=== PATIENT | female | born 1930 | race Caucasian/White ===

== ENCOUNTER 2018-05-10 19:15 | Inpatient (IN) | payer MEDICARE, BC ==
[~2018-05-10] VITALS: Ht 162.6 cm; Wt 66.7 kg
[2018-05-10 20:00] VITALS: BP 152/71
[2018-05-10] MEDS ORDERED: Z GUARD REMEDY PASTE 57 GM TUBE TOP PRN (20:45)
[2018-05-10] MEDS ORDERED: DULO30CA2 PO (20:56)
[2018-05-10] MEDS ORDERED: ALBU8.5H8 IH (20:56)
[2018-05-10] MEDS ORDERED: METO-356 PO (20:56)
[2018-05-10] MEDS ORDERED: APIX5TAB PO (20:56)
[2018-05-10] MEDS ORDERED: LORA1TAB PO (20:56)
[2018-05-10] MEDS ORDERED: SENN-167 PO (20:56)
[2018-05-10] MEDS ORDERED: HYDR-3326 PO (20:56)
[2018-05-10] MEDS ORDERED: ACET-2154 PO (20:56)
[2018-05-10] MEDS ORDERED: BISA-79 RC (20:56)
[2018-05-10] MEDS ORDERED: CHOL400T32 PO (20:56)
[2018-05-10] MEDS ORDERED: DOCU-141 PO (20:56)
[2018-05-10] MEDS ORDERED: ATOR80TA PO (20:56)
[2018-05-10] MEDS ORDERED: LEVO50TA8 PO (20:56)
[2018-05-10] MEDS ORDERED: POLY17PO4 PO (20:56)
[2018-05-10] MEDS ORDERED: NA P133E RC (20:56)
[2018-05-10] MEDS ORDERED: VERA120C3 PO (20:56)
[2018-05-10] MEDS ORDERED: VERAPAMIL SR 120 MG TABLET.SA PO ONE (22:57)
[2018-05-10] MEDS: LORAZEPAM 1 MG TABLET PO PRN (23:18)
[2018-05-10] MEDS: VERAPAMIL SR 120 MG TABLET.SA PO SCH (23:19)
[2018-05-11 04:00] VITALS: BP 121/63
[2018-05-11 08:00] VITALS: BP 160/76
[2018-05-11] MEDS ORDERED: LORAZEPAM 1 MG TABLET PO PRN (08:45)
[2018-05-11] MEDS ORDERED: ALBUTEROL SULFATE 8 GM HFA.AER.AD IH PRN (08:45)
[2018-05-11] MEDS ORDERED: MIRALAX 17 GM POWD.PACK PO PRN (08:45)
[2018-05-11] MEDS ORDERED: FLEET ENEMA 133 ML BOTTLE RC PRN (08:45)
[2018-05-11] MEDS ORDERED: BISACODYL 5 MG TABLET.DR PO PRN (08:45)
[2018-05-11] MEDS ORDERED: VERAPAMIL HCL 120 MG PO SCH (09:00)
[2018-05-11] MEDS: SENNOSIDES 1 TABLET PO SCH ×2 (09:00→17:00)
[2018-05-11] MEDS ORDERED: DOCUSATE SODIUM 100 MG CAPSULE PO SCH (09:00)
[2018-05-11] MEDS ORDERED: CHOLECALCIFEROL 400 UNITS TABLET PO SCH (09:00)
[2018-05-11] MEDS ORDERED: APIXABAN 5 MG TABLET PO ONE (09:30)
[2018-05-11] MEDS ORDERED: ALBUTEROL SULFATE 2.5 MG/3 ML NEBU NEB PRN (09:45)
[2018-05-11] MEDS: METOPROLOL SUCCINATE XL 25 MG TAB.SR.24H PO SCH (09:59)
[2018-05-11] MEDS: VERAPAMIL SR 120 MG TABLET.SA PO SCH ×2 (10:00→17:08)
[2018-05-11] MEDS: CHOLECALCIFEROL 1,000 UNIT TABLET PO SCH (10:00)
[2018-05-11] MEDS: LORAZEPAM 1 MG TABLET PO PRN ×2 (10:00→21:02)
[2018-05-11] MEDS: DOCUSATE SODIUM 100 MG/10 ML LIQUID UDC PO SCH ×2 (10:00→17:08)
[2018-05-11] MEDS: DULOXETINE 30 MG CAPSULE.DR PO SCH (10:01)
[2018-05-11] MEDS: LEVOTHYROXINE SODIUM 50 MCG TABLET PO SCH (10:01)
[2018-05-11 16:00] VITALS: BP 146/68
[2018-05-11] MEDS: APIXABAN 5 MG TABLET PO SCH (17:54)
[2018-05-11 19:30] VITALS: BP 128/74
[2018-05-11] MEDS: ATORVASTATIN 40 MG TABLET PO SCH (21:00)
[2018-05-11] MEDS ORDERED: Medication Not On Formulary EA (Atorvastatin Calcium (Lipitor) 80 MG) PO SCH (21:00)
[2018-05-12 04:00] VITALS: BP 130/72
[2018-05-12] MEDS: LEVOTHYROXINE SODIUM 50 MCG TABLET PO SCH (06:23)
[2018-05-12 08:00] VITALS: BP 165/76
[2018-05-12] MEDS: LORAZEPAM 1 MG TABLET PO PRN (08:31)
[2018-05-12] MEDS: SENNOSIDES 1 TABLET PO SCH ×2 (09:00→17:00)
[2018-05-12] MEDS: DOCUSATE SODIUM 100 MG/10 ML LIQUID UDC PO SCH ×2 (09:00→17:00)
[2018-05-12] MEDS: DULOXETINE 30 MG CAPSULE.DR PO SCH (10:02)
[2018-05-12] MEDS: VERAPAMIL SR 120 MG TABLET.SA PO SCH ×2 (10:02→17:21)
[2018-05-12] MEDS: METOPROLOL SUCCINATE XL 25 MG TAB.SR.24H PO SCH (10:03)
[2018-05-12] MEDS: APIXABAN 5 MG TABLET PO SCH ×2 (10:39→17:20)
[2018-05-12] MEDS: CHOLECALCIFEROL 1,000 UNIT TABLET PO SCH (15:54)
[2018-05-12 16:00] VITALS: BP 162/77
[2018-05-12 20:30] VITALS: BP 150/59
[2018-05-12] MEDS: ATORVASTATIN 40 MG TABLET PO SCH (20:56)
[2018-05-13] MEDS: LEVOTHYROXINE SODIUM 50 MCG TABLET PO SCH (06:07)
[2018-05-13 06:47] VITALS: BP 154/66
[2018-05-13 08:00] VITALS: BP 164/63
[2018-05-13] MEDS: ACETAMINOPHEN 325 MG TABLET PO PRN ×2 (10:12→21:24)
[2018-05-13] MEDS: DOCUSATE SODIUM 100 MG/10 ML LIQUID UDC PO SCH ×2 (10:21→17:52)
[2018-05-13] MEDS: APIXABAN 5 MG TABLET PO SCH ×2 (10:22→17:54)
[2018-05-13] MEDS: VERAPAMIL SR 120 MG TABLET.SA PO SCH ×2 (10:23→17:52)
[2018-05-13] MEDS: MODAFINIL 100 MG TABLET PO SCH (10:27)
[2018-05-13] MEDS: METOPROLOL SUCCINATE XL 25 MG TAB.SR.24H PO SCH (10:28)
[2018-05-13] MEDS: SENNOSIDES 1 TABLET PO SCH ×2 (10:28→17:54)
[2018-05-13] MEDS: CHOLECALCIFEROL 1,000 UNIT TABLET PO SCH (10:28)
[2018-05-13] MEDS: LORAZEPAM 1 MG TABLET PO PRN (10:29)
[2018-05-13 16:44] VITALS: BP 139/50
[2018-05-13] MEDS: HYDROCODONE/APAP 5-325MG TABLET PO PRN (17:51)
[2018-05-13 19:42] VITALS: BP 129/56
[2018-05-13] MEDS: ATORVASTATIN 40 MG TABLET PO SCH (21:24)
[2018-05-14] MEDS: ACETAMINOPHEN 325 MG TABLET PO PRN ×3 (02:53→15:51)
[2018-05-14 05:00] VITALS: BP 163/59
[2018-05-14] MEDS: LEVOTHYROXINE SODIUM 50 MCG TABLET PO SCH (06:33)
[2018-05-14 07:25] LABS: BASOPHILS # (AUTO) 0.1 K/uL (0.0-8.0); BASOPHILS % (AUTO) 0.7 % (0.0-2.0); EOSINOPHILS % (AUTO) 0.5 % (0.0-7.0); HEMATOCRIT 37.3 % (31.2-41.9); HEMOGLOBIN 12.6 g/dL (10.9-14.3); LYMPHOCYTES # (AUTO) 1.7 K/uL (20.0-40.0); LYMPHOCYTES % (AUTO) 19.5 % (20.5-51.5); MEAN CORPUSCULAR HEMOGLOBIN 30.5 uug (24.7-32.8); MEAN CORPUSCULAR HGB CONC 34 g/dL (32.3-35.6); MEAN CORPUSCULAR VOLUME 90.1 fL (75.5-95.3); MONOCYTES # (AUTO) 0.7 K/uL (2.0-10.0); NEUTROPHILS # (AUTO) 6.2 K/uL (1.8-8.9); NEUTROPHILS % (AUTO) 71.3 % (38.5-71.5); PLATELET COUNT (AUTO) 440 K/uL (179-408); RED BLOOD CELL COUNT(AUTO) 4.14 MIL/uL (3.63-4.92); WHITE BLOOD COUNT (AUTO) 8.7 K/uL (3.8-11.8)
[2018-05-14 07:40] VITALS: BP 154/62
[2018-05-14 07:57] LABS: CARBON DIOXIDE 29 mmol/L (21-32); CHLORIDE 108 mmol/L (98-107); CREATININE 0.9 mg/dL (0.6-1.3); GLUCOSE 100 mg/dL (74-106); MAGNESIUM 2.2 mg/dL (1.8-2.4); POTASSIUM 3.7 mmol/L (3.5-5.1); UREA NITROGEN, BLOOD 37 mg/dL (7-18)
[2018-05-14] MEDS: SENNOSIDES 1 TABLET PO SCH ×2 (09:00→16:46)
[2018-05-14] MEDS: METOPROLOL SUCCINATE XL 25 MG TAB.SR.24H PO SCH (09:27)
[2018-05-14] MEDS: MODAFINIL 100 MG TABLET PO SCH (09:27)
[2018-05-14] MEDS: VERAPAMIL SR 120 MG TABLET.SA PO SCH (09:28)
[2018-05-14] MEDS: APIXABAN 5 MG TABLET PO SCH ×2 (09:29→16:54)
[2018-05-14] MEDS: DOCUSATE SODIUM 100 MG/10 ML LIQUID UDC PO SCH ×2 (10:17→16:45)
[2018-05-14] MEDS: CHOLECALCIFEROL 1,000 UNIT TABLET PO SCH (10:18)
[2018-05-14 16:06] VITALS: BP 168/65
[2018-05-14] MEDS ORDERED: VERAPAMIL 40 MG TABLET PO SCH (17:00)
[2018-05-14 20:38] VITALS: BP 172/72
[2018-05-14] MEDS: ATORVASTATIN 40 MG TABLET PO SCH (21:08)
[2018-05-14] MEDS: VERAPAMIL 40 MG TABLET PO SCH (21:09)
[2018-05-14] MEDS: MAG HYDROX/AL HYDROX/SIMETH 30 ML LIQUID UDC PO PRN (22:06)
[2018-05-14] MEDS: LORAZEPAM 1 MG TABLET PO PRN (22:36)
[2018-05-15] MEDS: ACETAMINOPHEN 325 MG TABLET PO PRN ×2 (03:41→15:32)
[2018-05-15 05:46] LABS: *BILIRUBIN,URIN NEGATIVE (NEGATIVE); *BLOOD, URINE 2+ (NEGATIVE); *CLARITY,URINE CLOUDY (CLEAR); *COLOR,URINE YELLOW (YELLOW); *KETONES,URINE TRACE (NEGATIVE); *PROTEIN,URINE 1+ (NEGATIVE); *UROBILINOGEN,URINE 0.2 E.U./dl (NORMAL); LEUKOCYTE ESTERASE ,URINE 3+ (NEGATIVE); NITRITE, URINE POSITIVE (NEGATIVE); UGLUCOSE NEGATIVE (NEGATIVE)
[2018-05-15 05:49] LABS: BACTERIA,URINE MANY /HPF (NONE SEEN); RBC,URINE TNTC /HPF (0-3); SQUAMOUS EPITHELIAL CELL,UR FEW /HPF (NONE SEEN); WBC,URINE TNTC /HPF (0-3)
[2018-05-15] MEDS: LEVOTHYROXINE SODIUM 50 MCG TABLET PO SCH (06:10)
[2018-05-15] MEDS: VERAPAMIL 40 MG TABLET PO SCH ×3 (06:11→21:22)
[2018-05-15 06:59] VITALS: BP 128/68
[2018-05-15] MEDS: APIXABAN 5 MG TABLET PO SCH ×2 (08:44→16:12)
[2018-05-15] MEDS: METOPROLOL SUCCINATE XL 25 MG TAB.SR.24H PO SCH (08:48)
[2018-05-15] MEDS: CHOLECALCIFEROL 1,000 UNIT TABLET PO SCH (08:49)
[2018-05-15] MEDS: MODAFINIL 100 MG TABLET PO SCH (08:49)
[2018-05-15] MEDS: DOCUSATE SODIUM 100 MG/10 ML LIQUID UDC PO SCH ×2 (08:55→16:12)
[2018-05-15] MEDS: SENNOSIDES 1 TABLET PO SCH ×2 (09:16→16:13)
[2018-05-15] MEDS: LORAZEPAM 1 MG TABLET PO PRN ×2 (09:52→21:22)
[2018-05-15 16:00] VITALS: BP 167/64
[2018-05-15] MEDS: HYDROCODONE/APAP 5-325MG TABLET PO PRN (18:51)
[2018-05-15] MEDS: ATORVASTATIN 40 MG TABLET PO SCH (20:22)
[2018-05-15] MEDS: LEVOFLOXACIN 250 MG TABLET PO SCH (20:22)
[2018-05-15] MEDS ORDERED: METHYL SALICYLATE/MENTHOL CREAM 28 GM TUBE TOP PRN (20:45)
[2018-05-15 21:18] VITALS: BP 170/71
[2018-05-15] MEDS: MEGESTROL ACETATE 400 MG/10 ML LIQUID UDC PO SCH (21:22)
[2018-05-15 21:34] VITALS: BP 154/61
[2018-05-16] MEDS: ACETAMINOPHEN 325 MG TABLET PO PRN (00:48)
[2018-05-16] MEDS: VERAPAMIL 40 MG TABLET PO SCH ×3 (06:10→21:55)
[2018-05-16] MEDS: LEVOTHYROXINE SODIUM 50 MCG TABLET PO SCH (06:10)
[2018-05-16 07:00] VITALS: BP 159/68
[2018-05-16] MEDS: DOCUSATE SODIUM 100 MG/10 ML LIQUID UDC PO SCH ×2 (09:32→17:09)
[2018-05-16] MEDS: APIXABAN 5 MG TABLET PO SCH ×2 (09:35→17:10)
[2018-05-16] MEDS: MODAFINIL 100 MG TABLET PO SCH (09:36)
[2018-05-16] MEDS: MEGESTROL ACETATE 400 MG/10 ML LIQUID UDC PO SCH ×2 (09:36→21:52)
[2018-05-16] MEDS: CHOLECALCIFEROL 1,000 UNIT TABLET PO SCH (09:37)
[2018-05-16] MEDS: METOPROLOL SUCCINATE XL 25 MG TAB.SR.24H PO SCH (09:38)
[2018-05-16] MEDS: SENNOSIDES 1 TABLET PO SCH ×2 (09:53→17:09)
[2018-05-16 16:00] VITALS: BP 151/58
[2018-05-16 19:30] VITALS: BP 143/65
[2018-05-16] MEDS: LORAZEPAM 1 MG TABLET PO PRN (21:51)
[2018-05-16] MEDS: ATORVASTATIN 40 MG TABLET PO SCH (21:52)
[2018-05-16] MEDS: LEVOFLOXACIN 250 MG TABLET PO SCH (21:52)
[2018-05-17] MEDS: ACETAMINOPHEN 325 MG TABLET PO PRN ×2 (00:26→17:16)
[2018-05-17] MEDS: HYDROCODONE/APAP 5-325MG TABLET PO PRN (02:14)
[2018-05-17 04:00] VITALS: BP 136/65
[2018-05-17] MEDS: LEVOTHYROXINE SODIUM 50 MCG TABLET PO SCH (06:28)
[2018-05-17] MEDS: VERAPAMIL 40 MG TABLET PO SCH ×3 (06:30→21:07)
[2018-05-17] MEDS: SENNOSIDES 1 TABLET PO SCH ×2 (08:35→17:15)
[2018-05-17] MEDS: DOCUSATE SODIUM 100 MG/10 ML LIQUID UDC PO SCH ×2 (08:35→17:05)
[2018-05-17] MEDS: MEGESTROL ACETATE 400 MG/10 ML LIQUID UDC PO SCH ×2 (08:35→21:07)
[2018-05-17] MEDS: CHOLECALCIFEROL 1,000 UNIT TABLET PO SCH (08:35)
[2018-05-17] MEDS: LORAZEPAM 1 MG TABLET PO PRN ×2 (08:36→21:12)
[2018-05-17] MEDS: METOPROLOL SUCCINATE XL 25 MG TAB.SR.24H PO SCH (08:39)
[2018-05-17] MEDS: APIXABAN 5 MG TABLET PO SCH ×2 (08:39→17:08)
[2018-05-17] MEDS: MODAFINIL 100 MG TABLET PO SCH (08:40)
[2018-05-17 10:02] VITALS: BP 152/64
[2018-05-17 13:38] VITALS: BP 152/64
[2018-05-17 15:43] VITALS: BP 139/56
[2018-05-17] MEDS: MAG HYDROX/AL HYDROX/SIMETH 30 ML LIQUID UDC PO PRN (18:54)
[2018-05-17 20:46] VITALS: BP 130/63
[2018-05-17] MEDS: ATORVASTATIN 40 MG TABLET PO SCH (21:07)
[2018-05-17] MEDS: LEVOFLOXACIN 250 MG TABLET PO SCH (21:07)
[2018-05-18] MEDS: HYDROCODONE/APAP 5-325MG TABLET PO PRN ×2 (02:13→23:57)
[2018-05-18 05:00] VITALS: BP 152/58
[2018-05-18] MEDS: LEVOTHYROXINE SODIUM 50 MCG TABLET PO SCH (06:38)
[2018-05-18] MEDS: VERAPAMIL 40 MG TABLET PO SCH ×3 (06:39→21:00)
[2018-05-18 07:45] VITALS: BP 149/58
[2018-05-18] MEDS: MEGESTROL ACETATE 400 MG/10 ML LIQUID UDC PO SCH ×2 (09:24→21:00)
[2018-05-18] MEDS: DOCUSATE SODIUM 100 MG/10 ML LIQUID UDC PO SCH ×2 (09:24→16:36)
[2018-05-18] MEDS: METOPROLOL SUCCINATE XL 25 MG TAB.SR.24H PO SCH (09:25)
[2018-05-18] MEDS: CHOLECALCIFEROL 1,000 UNIT TABLET PO SCH (09:25)
[2018-05-18] MEDS: MODAFINIL 100 MG TABLET PO SCH (09:25)
[2018-05-18] MEDS: SENNOSIDES 1 TABLET PO SCH ×2 (09:25→16:36)
[2018-05-18] MEDS: APIXABAN 5 MG TABLET PO SCH ×2 (09:26→16:40)
[2018-05-18] MEDS: NITROFURANTOIN/NITROFURAN MAC 100 MG CAPSULE PO SCH ×2 (11:25→20:59)
[2018-05-18] MEDS: LORAZEPAM 1 MG TABLET PO PRN ×2 (12:45→21:00)
[2018-05-18] MEDS: ACETAMINOPHEN 325 MG TABLET PO PRN (15:03)
[2018-05-18 16:33] VITALS: BP 134/56
[2018-05-18 20:34] VITALS: BP 153/60
[2018-05-18] MEDS: ATORVASTATIN 40 MG TABLET PO SCH (21:00)
[2018-05-19 05:20] VITALS: BP 132/59
[2018-05-19] MEDS: VERAPAMIL 40 MG TABLET PO SCH ×3 (06:06→22:00)
[2018-05-19] MEDS: LEVOTHYROXINE SODIUM 50 MCG TABLET PO SCH (06:06)
[2018-05-19 08:00] VITALS: BP 134/63
[2018-05-19] MEDS: LISINOPRIL 10 MG TABLET PO SCH (08:47)
[2018-05-19] MEDS: MODAFINIL 100 MG TABLET PO SCH (08:47)
[2018-05-19] MEDS: MEGESTROL ACETATE 400 MG/10 ML LIQUID UDC PO SCH ×2 (08:47→21:05)
[2018-05-19] MEDS: METOPROLOL SUCCINATE XL 25 MG TAB.SR.24H PO SCH (08:47)
[2018-05-19] MEDS: CHOLECALCIFEROL 1,000 UNIT TABLET PO SCH (08:47)
[2018-05-19] MEDS: SENNOSIDES 1 TABLET PO SCH ×2 (08:47→17:25)
[2018-05-19] MEDS: NITROFURANTOIN/NITROFURAN MAC 100 MG CAPSULE PO SCH ×2 (08:48→21:05)
[2018-05-19] MEDS: DOCUSATE SODIUM 100 MG/10 ML LIQUID UDC PO SCH ×2 (08:48→17:25)
[2018-05-19] MEDS: APIXABAN 5 MG TABLET PO SCH ×2 (08:55→17:28)
[2018-05-19] MEDS: ACETAMINOPHEN 325 MG TABLET PO PRN ×2 (08:57→21:10)
[2018-05-19 16:00] VITALS: BP 118/53
[2018-05-19] MEDS: HYDROCODONE/APAP 5-325MG TABLET PO PRN (17:29)
[2018-05-19 21:05] VITALS: BP 101/56
[2018-05-19] MEDS: LORAZEPAM 1 MG TABLET PO PRN (21:05)
[2018-05-19] MEDS: ATORVASTATIN 40 MG TABLET PO SCH (21:05)
[2018-05-20 05:27] VITALS: BP 120/63
[2018-05-20] MEDS: VERAPAMIL 40 MG TABLET PO SCH (06:22)
[2018-05-20] MEDS: LEVOTHYROXINE SODIUM 50 MCG TABLET PO SCH (06:22)
[2018-05-20] MEDS: HYDROCODONE/APAP 5-325MG TABLET PO PRN ×2 (06:28→17:46)
[2018-05-20 07:30] VITALS: BP 101/43
[2018-05-20] MEDS: CHOLECALCIFEROL 1,000 UNIT TABLET PO SCH (08:29)
[2018-05-20] MEDS: MODAFINIL 100 MG TABLET PO SCH (08:30)
[2018-05-20] MEDS: ACETAMINOPHEN 325 MG TABLET PO PRN ×2 (08:30→14:21)
[2018-05-20] MEDS: SENNOSIDES 1 TABLET PO SCH ×2 (08:30→17:45)
[2018-05-20] MEDS: LISINOPRIL 10 MG TABLET PO SCH (08:32)
[2018-05-20] MEDS: METOPROLOL SUCCINATE XL 25 MG TAB.SR.24H PO SCH (08:32)
[2018-05-20] MEDS: NITROFURANTOIN/NITROFURAN MAC 100 MG CAPSULE PO SCH (08:33)
[2018-05-20] MEDS: DOCUSATE SODIUM 100 MG/10 ML LIQUID UDC PO SCH ×2 (08:34→17:46)
[2018-05-20] MEDS: MEGESTROL ACETATE 400 MG/10 ML LIQUID UDC PO SCH (08:34)
[2018-05-20] MEDS: APIXABAN 5 MG TABLET PO SCH ×2 (08:46→18:01)
[2018-05-20] MEDS: LORAZEPAM 1 MG TABLET PO PRN ×2 (09:29→17:46)
[2018-05-20 11:21] LABS: BASOPHILS # (AUTO) 0.1 K/uL (0.0-8.0); BASOPHILS % (AUTO) 0.8 % (0.0-2.0); EOSINOPHILS # (AUTO) 0.1 K/uL (0.0-0.7); EOSINOPHILS % (AUTO) 0.7 % (0.0-7.0); HEMATOCRIT 39.4 % (31.2-41.9); LYMPHOCYTES # (AUTO) 0.4 K/uL (20.0-40.0); LYMPHOCYTES % (AUTO) 3.3 % (20.5-51.5); MEAN CORPUSCULAR HEMOGLOBIN 29.6 uug (24.7-32.8); MEAN CORPUSCULAR HGB CONC 33 g/dL (32.3-35.6); MEAN CORPUSCULAR VOLUME 89.8 fL (75.5-95.3); MONOCYTES # (AUTO) 0.5 K/uL (2.0-10.0); MONOCYTES % (AUTO) 4.1 % (0.0-11.0); NEUTROPHILS # (AUTO) 11.9 K/uL (1.8-8.9); NEUTROPHILS % (AUTO) 91.1 % (38.5-71.5); PLATELET COUNT (AUTO) 436 K/uL (179-408); RED BLOOD CELL COUNT(AUTO) 4.39 MIL/uL (3.63-4.92)
[2018-05-20 11:28] LABS: CARBON DIOXIDE 24 mmol/L (21-32); CHLORIDE 108 mmol/L (98-107); CREATININE 1.1 mg/dL (0.6-1.3); GLUCOSE 112 mg/dL (74-106); POTASSIUM 3.5 mmol/L (3.5-5.1); UREA NITROGEN, BLOOD 35 mg/dL (7-18)
[2018-05-20] MEDS ORDERED: VERAPAMIL 80 MG TABLET PO SCH (14:00)
[2018-05-20 16:00] VITALS: BP 126/55
[2018-05-20] MEDS ORDERED: LISI10TA5 PO (19:54)
[2018-05-20] MEDS ORDERED: MAG-55 PO (19:57)
[2018-05-20] MEDS ORDERED: MEGE400O2 PO (19:59)
[2018-05-20] MEDS ORDERED: MENT113G5 TP (20:00)
[2018-05-20] MEDS ORDERED: NA P133E RC (20:07)
[2018-05-20] MEDS ORDERED: MENT4PAS TP (20:07)
[2018-05-20] MEDS ORDERED: ALBU8.5H8 INH (20:07)
[2018-05-20] MEDS ORDERED: NITR100C11 PO (20:07)
[2018-05-20] MEDS ORDERED: MODA100T14 PO (20:07)
== END 2018-05-20 18:45 | disposition short-term general hospital (02) | DRG 56 ==
LOC: SA1 19:15
PROVIDERS: ADMIT Physical Medicine & Rehabilitation Pain Medicine; ATTEND Physical Medicine & Rehabilitation Pain Medicine
DX: I69.351 Hemiplegia and hemiparesis following cerebral infarction affecting right dominant side (principal); G92 Toxic encephalopathy; E44.0 Moderate protein-calorie malnutrition; N39.0 Urinary tract infection, site not specified; I69.320 Aphasia following cerebral infarction; I69.398 Other sequelae of cerebral infarction; R20.2 Paresthesia of skin; E03.9 Hypothyroidism, unspecified; E78.00 Pure hypercholesterolemia, unspecified; E78.5 Hyperlipidemia, unspecified; I10 Essential (primary) hypertension; I25.10 Atherosclerotic heart disease of native coronary artery without angina pectoris; M17.11 Unilateral primary osteoarthritis, right knee; Z91.010 Allergy to peanuts; I48.0 Paroxysmal atrial fibrillation; J45.909 Unspecified asthma, uncomplicated; M34.9 Systemic sclerosis, unspecified; R27.0 Ataxia, unspecified; B96.20 Unspecified Escherichia coli [E. coli] as the cause of diseases classified elsewhere; Z68.25 Body mass index [BMI] 25.0-25.9, adult; F32.9 Major depressive disorder, single episode, unspecified; F41.9 Anxiety disorder, unspecified; I25.2 Old myocardial infarction; R90.82 White matter disease, unspecified; Z88.0 Allergy status to penicillin; Z88.5 Allergy status to narcotic agent
CPT/HCPCS: 36415; 70030-TC; 70450; 83735; 84100; 85025; 87077; 87086; 92523; 92526; 92610; 97110; 97112; 97116; 97165; 97530; 97535; A4663; C1758; J8999

== ENCOUNTER 2018-05-20 18:20 | Inpatient (IN) | payer MEDICARE, BC, MEDICAID ==
[~2018-05-20] VITALS: Ht 162.6 cm; Wt 66.7 kg
[~2018-05-20 18:20] MED LIST: ACET-2154 PO; ALBU8.5H8 IH; APIX5TAB PO; ATOR80TA PO; BISA-79 RC; CHOL400T32 PO; DOCU-141 PO; DULO30CA2 PO; HYDR-3326 PO; LEVO50TA8 PO; LORA1TAB PO; METO-356 PO; NA P133E RC; POLY17PO4 PO; SENN-168 PO; VERA120C3 PO
[2018-05-20] MEDS ORDERED: LISI10TA5 PO (19:54)
[2018-05-20] MEDS ORDERED: MAG-55 PO (19:57)
[2018-05-20] MEDS ORDERED: MEGE400O2 PO (19:59)
[2018-05-20 20:00] VITALS: BP 125/65
[2018-05-20] MEDS ORDERED: MENT113G5 TP (20:00)
[2018-05-20] MEDS ORDERED: MENT4PAS TP (20:07)
[2018-05-20] MEDS ORDERED: ALBU8.5H8 INH (20:07)
[2018-05-20] MEDS ORDERED: NA P133E RC (20:07)
[2018-05-20] MEDS ORDERED: NITR100C11 PO (20:07)
[2018-05-20] MEDS ORDERED: MODA100T14 PO (20:07)
[2018-05-20] MEDS ORDERED: MIRALAX 17 GM POWD.PACK PO SCH (20:15)
[2018-05-20] MEDS ORDERED: BISACODYL 5 MG TABLET.DR PO SCH (20:15)
[2018-05-20] MEDS ORDERED: Medication Not On Formulary EA (Mag Hydrox/Al Hydrox/Simeth (Maalox Advanced Max-Str Sus PO SCH (20:15)
[2018-05-20] MEDS ORDERED: LORAZEPAM 1 MG TABLET PO SCH (20:15)
[2018-05-20] MEDS ORDERED: FLEET ENEMA 133 ML BOTTLE RC SCH ×2 (20:15)
[2018-05-20] MEDS ORDERED: Medication Not On Formulary EA (Atorvastatin Calcium (Lipitor) 80 MG) PO SCH (21:00)
[2018-05-20] MEDS: HYDROCODONE/APAP 5-325MG TABLET PO SCH (21:51)
[2018-05-20] MEDS ORDERED: ALBUTEROL SULFATE 2.5 MG/3 ML NEBU NEB PRN (22:15)
[2018-05-20] MEDS: NITROFURANTOIN/NITROFURAN MAC 100 MG CAPSULE PO SCH (23:10)
[2018-05-21 05:14] VITALS: BP 129/63
[2018-05-21 05:28] LABS: *BILIRUBIN,URIN NEGATIVE (NEGATIVE); *BLOOD, URINE 2+ (NEGATIVE); *COLOR,URINE YELLOW (YELLOW); *KETONES,URINE NEGATIVE (NEGATIVE); *PROTEIN,URINE 1+ (NEGATIVE); *UROBILINOGEN,URINE 0.2 E.U./dl (NORMAL); LEUKOCYTE ESTERASE ,URINE 1+ (NEGATIVE); NITRITE, URINE NEGATIVE (NEGATIVE); PH,URINE 5.5 (5.0-8.0); UGLUCOSE NEGATIVE (NEGATIVE)
[2018-05-21 05:33] LABS: *CLARITY,URINE HAZY (CLEAR)
[2018-05-21 05:35] LABS: BACTERIA,URINE MODERATE /HPF (NONE SEEN); RBC,URINE TNTC /HPF (0-3); SQUAMOUS EPITHELIAL CELL,UR FEW /HPF (NONE SEEN)
[2018-05-21 06:00] LABS: BASOPHILS % (AUTO) 0.5 % (0.0-2.0); EOSINOPHILS # (AUTO) 0.3 K/uL (0.0-0.7); HEMATOCRIT 36.8 % (31.2-41.9); HEMOGLOBIN 12.6 g/dL (10.9-14.3); LYMPHOCYTES # (AUTO) 0.9 K/uL (20.0-40.0); LYMPHOCYTES % (AUTO) 10.5 % (20.5-51.5); MEAN CORPUSCULAR HGB CONC 34 g/dL (32.3-35.6); MEAN CORPUSCULAR VOLUME 87.6 fL (75.5-95.3); MONOCYTES # (AUTO) 0.8 K/uL (2.0-10.0); MONOCYTES % (AUTO) 9.4 % (0.0-11.0); NEUTROPHILS # (AUTO) 6.6 K/uL (1.8-8.9); NEUTROPHILS % (AUTO) 75.6 % (38.5-71.5); PLATELET COUNT (AUTO) 418 K/uL (179-408); RED BLOOD CELL COUNT(AUTO) 4.21 MIL/uL (3.63-4.92); WHITE BLOOD COUNT (AUTO) 8.7 K/uL (3.8-11.8)
[2018-05-21] MEDS: LEVOTHYROXINE SODIUM 50 MCG TABLET PO SCH (06:05)
[2018-05-21 06:12] LABS: ALANINE AMINOTRANSFERASE 20 U/L (14-59); ALKALINE PHOSPHATASE 65 U/L (50-136); ASPARTATE AMINOTRANSFERASE 18 U/L (15-37); BILIRUBIN,TOTAL 0.3 mg/dL (0.2-1.0); CARBON DIOXIDE 26 mmol/L (21-32); CHLORIDE 110 mmol/L (98-107); GLUCOSE 95 mg/dL (74-106); MAGNESIUM 2.4 mg/dL (1.8-2.4); PHOSPHOROUS 3.6 mg/dL (2.5-4.9); POTASSIUM 3.3 mmol/L (3.5-5.1); UREA NITROGEN, BLOOD 36 mg/dL (7-18)
[2018-05-21] MEDS: DOCUSATE SODIUM 100 MG CAPSULE PO SCH ×3 (08:59→16:47)
[2018-05-21] MEDS: NITROFURANTOIN/NITROFURAN MAC 100 MG CAPSULE PO SCH (08:59)
[2018-05-21] MEDS: CHOLECALCIFEROL 1,000 UNIT TABLET PO SCH (08:59)
[2018-05-21] MEDS: SENNOSIDES 1 TABLET PO SCH ×2 (08:59→16:47)
[2018-05-21] MEDS ORDERED: MODAFINIL 100 MG TABLET PO SCH (09:00)
[2018-05-21] MEDS ORDERED: APIXABAN 5 MG TABLET PO ONE (09:00)
[2018-05-21] MEDS ORDERED: NITROFURANTOIN/NITROFURAN MAC 100 MG CAPSULE PO SCH (09:00)
[2018-05-21] MEDS ORDERED: METOPROLOL SUCCINATE XL 25 MG TAB.SR.24H PO SCH (09:00)
[2018-05-21] MEDS ORDERED: VERAPAMIL SR 120 MG TABLET.SA PO SCH (09:00)
[2018-05-21] MEDS ORDERED: APIXABAN 5 MG TABLET PO SCH (09:00)
[2018-05-21] MEDS ORDERED: VERAPAMIL HCL 120 MG PO SCH (09:00)
[2018-05-21] MEDS: LISINOPRIL 10 MG TABLET PO SCH (09:15)
[2018-05-21] MEDS: MEGESTROL ACETATE 400 MG/10 ML LIQUID UDC PO SCH ×2 (09:20→16:47)
[2018-05-21 11:49] VITALS: BP 128/58
[2018-05-21] MEDS ORDERED: MAG HYDROX/AL HYDROX/SIMETH 30 ML LIQUID UDC PO PRN (12:00)
[2018-05-21] MEDS: GENTAMICIN SULFATE INJ 70 MG in IV DEXTROSE 5% 50 ML IV SCH (12:08)
[2018-05-21] MEDS ORDERED: LORAZEPAM 1 MG TABLET PO SCH (14:00)
[2018-05-21] MEDS ORDERED: DULOXETINE 20 MG CAPSULE.DR PO SCH (14:15)
[2018-05-21] MEDS ORDERED: POTASSIUM CHLORIDE 20 MEQ TAB.PRT.SR PO ONE (15:00)
[2018-05-21 15:26] VITALS: BP 140/51
[2018-05-21] MEDS: busPIRone 5 MG TABLET PO SCH (16:13)
[2018-05-21] MEDS: APIXABAN 5 MG TABLET PO SCH (16:50)
[2018-05-21] MEDS: ATORVASTATIN 40 MG TABLET PO SCH (20:37)
[2018-05-21 20:50] VITALS: BP 132/65
[2018-05-22 04:00] VITALS: BP 125/60
[2018-05-22] MEDS: GENTAMICIN SULFATE INJ 70 MG in IV DEXTROSE 5% 50 ML IV SCH ×2 (04:25→19:33)
[2018-05-22 06:28] LABS: BASOPHILS % (AUTO) 0.4 % (0.0-2.0); EOSINOPHILS # (AUTO) 0.2 K/uL (0.0-0.7); HEMATOCRIT 38.4 % (31.2-41.9); HEMOGLOBIN 12.9 g/dL (10.9-14.3); LYMPHOCYTES % (AUTO) 11.2 % (20.5-51.5); MEAN CORPUSCULAR HEMOGLOBIN 30.1 uug (24.7-32.8); MEAN CORPUSCULAR HGB CONC 34 g/dL (32.3-35.6); MEAN CORPUSCULAR VOLUME 89.5 fL (75.5-95.3); MONOCYTES # (AUTO) 0.8 K/uL (2.0-10.0); MONOCYTES % (AUTO) 8.6 % (0.0-11.0); NEUTROPHILS # (AUTO) 7.2 K/uL (1.8-8.9); NEUTROPHILS % (AUTO) 77.8 % (38.5-71.5); PLATELET COUNT (AUTO) 441 K/uL (179-408); RED BLOOD CELL COUNT(AUTO) 4.29 MIL/uL (3.63-4.92); WHITE BLOOD COUNT (AUTO) 9.3 K/uL (3.8-11.8)
[2018-05-22 06:42] LABS: ALANINE AMINOTRANSFERASE 26 U/L (14-59); ALKALINE PHOSPHATASE 80 U/L (50-136); ASPARTATE AMINOTRANSFERASE 31 U/L (15-37); BILIRUBIN,TOTAL 0.3 mg/dL (0.2-1.0); CARBON DIOXIDE 28 mmol/L (21-32); CHLORIDE 110 mmol/L (98-107); CREATININE 0.9 mg/dL (0.6-1.3); GLUCOSE 98 mg/dL (74-106); MAGNESIUM 2.2 mg/dL (1.8-2.4); PHOSPHOROUS 3.3 mg/dL (2.5-4.9); POTASSIUM 3.4 mmol/L (3.5-5.1); TOTAL PROTEIN, SERUM 6.4 g/dL (6.4-8.2); UREA NITROGEN, BLOOD 29 mg/dL (7-18)
[2018-05-22] MEDS: LEVOTHYROXINE SODIUM 50 MCG TABLET PO SCH (07:04)
[2018-05-22] MEDS: LORAZEPAM 0.5 MG TABLET PO PRN ×2 (08:17→19:33)
[2018-05-22] MEDS: HYDROCODONE/APAP 5-325MG TABLET PO SCH ×2 (08:17→14:26)
[2018-05-22] MEDS: busPIRone 5 MG TABLET PO SCH ×3 (08:17→17:29)
[2018-05-22] MEDS: LISINOPRIL 10 MG TABLET PO SCH (08:18)
[2018-05-22] MEDS: CHOLECALCIFEROL 1,000 UNIT TABLET PO SCH (08:18)
[2018-05-22] MEDS: METOPROLOL SUCCINATE XL 50 MG TAB.SR.24H PO SCH (08:18)
[2018-05-22] MEDS: SENNOSIDES 1 TABLET PO SCH ×2 (08:19→17:29)
[2018-05-22] MEDS: DOCUSATE SODIUM 100 MG CAPSULE PO SCH ×2 (08:19→17:29)
[2018-05-22] MEDS: MEGESTROL ACETATE 400 MG/10 ML LIQUID UDC PO SCH ×2 (08:36→17:29)
[2018-05-22] MEDS: Z GUARD REMEDY PASTE 57 GM TUBE TOP PRN (08:36)
[2018-05-22] MEDS: METHYL SALICYLATE/MENTHOL CREAM 28 GM TUBE TOP PRN (08:36)
[2018-05-22] MEDS: APIXABAN 5 MG TABLET PO SCH ×2 (08:37→17:30)
[2018-05-22] MEDS ORDERED: METOPROLOL SUCCINATE XL 25 MG TAB.SR.24H PO SCH (09:00)
[2018-05-22] MEDS: MODAFINIL 100 MG TABLET PO SCH (10:01)
[2018-05-22 11:30] VITALS: BP 147/59
[2018-05-22] MEDS: SERTRALINE HCL 50 MG TABLET PO SCH (12:13)
[2018-05-22] MEDS: ACETAMINOPHEN 325 MG TABLET PO SCH (12:25)
[2018-05-22] MEDS ORDERED: POTASSIUM CHLORIDE 20 MEQ TAB.PRT.SR PO ONE (14:00)
[2018-05-22 15:45] VITALS: BP 124/64
[2018-05-22] MEDS: HYDROCODONE/APAP 5-325MG TABLET PO PRN (19:39)
[2018-05-22] MEDS: ATORVASTATIN 40 MG TABLET PO SCH (20:11)
[2018-05-22 20:43] VITALS: BP 161/74
[2018-05-23] MEDS: HYDROCODONE/APAP 5-325MG TABLET PO PRN ×3 (03:39→17:06)
[2018-05-23] MEDS: ACETAMINOPHEN 325 MG TABLET PO SCH ×2 (05:52→14:20)
[2018-05-23] MEDS: LEVOTHYROXINE SODIUM 50 MCG TABLET PO SCH (06:10)
[2018-05-23 06:20] VITALS: BP 120/56
[2018-05-23 06:48] LABS: CARBON DIOXIDE 28 mmol/L (21-32); CHLORIDE 111 mmol/L (98-107); CREATININE 0.9 mg/dL (0.6-1.3); GLUCOSE 103 mg/dL (74-106); POTASSIUM 3.7 mmol/L (3.5-5.1); UREA NITROGEN, BLOOD 32 mg/dL (7-18)
[2018-05-23 08:00] VITALS: BP 135/47
[2018-05-23] MEDS: DOCUSATE SODIUM 100 MG CAPSULE PO SCH ×2 (08:34→17:06)
[2018-05-23] MEDS: LISINOPRIL 10 MG TABLET PO SCH (08:34)
[2018-05-23] MEDS: SENNOSIDES 1 TABLET PO SCH ×2 (08:34→17:06)
[2018-05-23] MEDS: CHOLECALCIFEROL 1,000 UNIT TABLET PO SCH (08:34)
[2018-05-23] MEDS: Z GUARD REMEDY PASTE 57 GM TUBE TOP PRN (08:35)
[2018-05-23] MEDS: METOPROLOL SUCCINATE XL 50 MG TAB.SR.24H PO SCH (08:35)
[2018-05-23] MEDS: MODAFINIL 100 MG TABLET PO SCH (08:35)
[2018-05-23] MEDS: LORAZEPAM 0.5 MG TABLET PO PRN ×2 (08:35→14:20)
[2018-05-23] MEDS: METHYL SALICYLATE/MENTHOL CREAM 28 GM TUBE TOP PRN (08:36)
[2018-05-23] MEDS: MEGESTROL ACETATE 400 MG/10 ML LIQUID UDC PO SCH ×2 (08:38→17:06)
[2018-05-23] MEDS: busPIRone 5 MG TABLET PO SCH ×4 (09:00→18:04)
[2018-05-23] MEDS ORDERED: BISACODYL 5 MG TABLET.DR PO PRN (10:40)
[2018-05-23] MEDS: SERTRALINE HCL 50 MG TABLET PO SCH (10:44)
[2018-05-23] MEDS: APIXABAN 5 MG TABLET PO SCH ×2 (10:44→17:07)
[2018-05-23 11:17] VITALS: BP 150/58
[2018-05-23] MEDS: GENTAMICIN SULFATE INJ 70 MG in IV DEXTROSE 5% 50 ML IV SCH (13:08)
[2018-05-23 15:03] VITALS: BP 157/60
[2018-05-23 20:00] VITALS: BP 168/70
[2018-05-23] MEDS: ATORVASTATIN 40 MG TABLET PO SCH (20:13)
[2018-05-23] MEDS ORDERED: MIRTAZAPINE 15 MG TAB.RAPDIS SL SCH (21:00)
[2018-05-24] MEDS: ACETAMINOPHEN 325 MG TABLET PO SCH (03:28)
[2018-05-24 04:00] VITALS: BP 145/62
[2018-05-24] MEDS: LEVOTHYROXINE SODIUM 50 MCG TABLET PO SCH (06:00)
[2018-05-24] MEDS: busPIRone 5 MG TABLET PO SCH ×3 (08:55→17:25)
[2018-05-24] MEDS: CHOLECALCIFEROL 1,000 UNIT TABLET PO SCH (08:55)
[2018-05-24] MEDS: SENNOSIDES 1 TABLET PO SCH ×2 (08:55→17:25)
[2018-05-24] MEDS: MEGESTROL ACETATE 400 MG/10 ML LIQUID UDC PO SCH ×2 (08:56→17:24)
[2018-05-24] MEDS: APIXABAN 5 MG TABLET PO SCH ×2 (09:02→17:25)
[2018-05-24] MEDS: SERTRALINE HCL 50 MG TABLET PO SCH (09:03)
[2018-05-24] MEDS: METOPROLOL SUCCINATE XL 50 MG TAB.SR.24H PO SCH (09:18)
[2018-05-24] MEDS: LISINOPRIL 10 MG TABLET PO SCH (09:18)
[2018-05-24] MEDS: DOCUSATE SODIUM 100 MG/10 ML LIQUID UDC PO SCH ×2 (10:06→17:25)
[2018-05-24 11:09] VITALS: BP 139/52
[2018-05-24] MEDS ORDERED: GENTAMICIN SULFATE INJ 100 MG in IV DEXTROSE 5% 100 ML IV SCH (15:00)
[2018-05-24] MEDS ORDERED: CEFTRIAXONE 1 G in IV DEXTROSE 5% 50 ML IV SCH (15:00)
[2018-05-24 15:34] VITALS: BP 153/62
[2018-05-24] MEDS ORDERED: QUETIAPINE FUMARATE 25 MG TABLET PO SCH (21:00)
[2018-05-25] MEDS ORDERED: BISA5TAB10 PO (15:20)
== END 2018-05-24 19:00 | DRG 689 ==
LOC: MED 18:47
PROVIDERS: ADMIT Internal Medicine Nephrology; ATTEND Internal Medicine
DX: N39.0 Urinary tract infection, site not specified (principal); G92 Toxic encephalopathy; I69.351 Hemiplegia and hemiparesis following cerebral infarction affecting right dominant side; I50.32 Chronic diastolic (congestive) heart failure; I42.9 Cardiomyopathy, unspecified; I69.320 Aphasia following cerebral infarction; M34.9 Systemic sclerosis, unspecified; I25.2 Old myocardial infarction; I48.0 Paroxysmal atrial fibrillation; Z79.01 Long term (current) use of anticoagulants; E03.9 Hypothyroidism, unspecified; E78.5 Hyperlipidemia, unspecified; J45.909 Unspecified asthma, uncomplicated; Z16.23 Resistance to quinolones and fluoroquinolones; Z88.0 Allergy status to penicillin; F41.9 Anxiety disorder, unspecified; F32.9 Major depressive disorder, single episode, unspecified; I25.10 Atherosclerotic heart disease of native coronary artery without angina pectoris; B96.20 Unspecified Escherichia coli [E. coli] as the cause of diseases classified elsewhere; Z88.6 Allergy status to analgesic agent; Z91.010 Allergy to peanuts; I11.0 Hypertensive heart disease with heart failure; G31.84 Mild cognitive impairment of uncertain or unknown etiology; M19.90 Unspecified osteoarthritis, unspecified site; F29 Unspecified psychosis not due to a substance or known physiological condition
CPT/HCPCS: 36415; 71045; 73620; 83735; 84100; 85025; 87077; 87086; 93005; 93307; 97110; 97112; 97530; G0378; J0696; J1580; J3490; J7060; J8999

== ENCOUNTER 2018-05-24 20:32 | Inpatient (IN) | payer MEDICARE, BC, MEDICAID ==
[~2018-05-24] VITALS: Ht 162.6 cm; Wt 66.7 kg
[~2018-05-24 20:32] MED LIST changes: +ALBU8.5H8 INH; +LISI10TA5 PO; +MAG-55 PO; +MEGE400O2 PO; +MENT113G5 TP; +MENT4PAS TP; +MODA100T14 PO; +NITR100C11 PO
[2018-05-24 20:42] VITALS: BP 177/76
[2018-05-24] MEDS ORDERED: MAG HYDROX/AL HYDROX/SIMETH 30 ML LIQUID UDC PO PRN (20:45)
[2018-05-24] MEDS ORDERED: QUETIAPINE FUMARATE 25 MG TABLET PO PRN (20:45)
[2018-05-24] MEDS ORDERED: MAGNESIUM HYDROXIDE 30 ML LIQUID UDC PO PRN (20:45)
[2018-05-24] MEDS: ZOLPIDEM 5 MG TABLET PO PRN (21:57)
[2018-05-24] MEDS: ACETAMINOPHEN 325 MG TABLET PO PRN (21:57)
[2018-05-24 22:11] VITALS: BP 150/85
[2018-05-25] MEDS: ACETAMINOPHEN 325 MG TABLET PO PRN (06:49)
[2018-05-25 07:30] VITALS: BP 160/78
[2018-05-25] MEDS: NITROFURANTOIN/NITROFURAN MAC 100 MG CAPSULE PO SCH ×2 (08:10→17:31)
[2018-05-25] MEDS ORDERED: NITROFURANTOIN/NITROFURAN MAC 100 MG CAPSULE PO SCH (09:00)
[2018-05-25 12:14] LABS: *OCCULT BLOOD STOOL POSITIVE (NEGATIVE)
[2018-05-25] MEDS ORDERED: ALBUTEROL SULFATE 8 GM HFA.AER.AD INH SCH (13:15)
[2018-05-25] MEDS ORDERED: MIRALAX 17 GM POWD.PACK PO SCH (13:15)
[2018-05-25] MEDS ORDERED: Z GUARD REMEDY PASTE 57 GM TUBE TOP PRN (13:15)
[2018-05-25] MEDS ORDERED: ACETAMINOPHEN 325 MG TABLET PO PRN (13:15)
[2018-05-25] MEDS ORDERED: ALBUTEROL SULFATE 2.5 MG/3 ML NEBU NEB PRN (13:30)
[2018-05-25] MEDS: LISINOPRIL 10 MG TABLET PO SCH (14:04)
[2018-05-25] MEDS: CHOLECALCIFEROL 1,000 UNIT TABLET PO SCH (14:04)
[2018-05-25] MEDS: METOPROLOL SUCCINATE XL 25 MG TAB.SR.24H PO SCH (14:04)
[2018-05-25] MEDS ORDERED: BISA5TAB10 PO (15:20)
[2018-05-25] MEDS ORDERED: BISACODYL 5 MG TABLET.DR PO PRN (15:30)
[2018-05-25 16:00] VITALS: BP 150/80
[2018-05-25] MEDS ORDERED: METHYL SALICYLATE/MENTHOL CREAM 28 GM TUBE TOP PRN (17:00)
[2018-05-25] MEDS: SENNOSIDES 1 TABLET PO SCH (17:31)
[2018-05-25] MEDS: DOCUSATE SODIUM 100 MG CAPSULE PO SCH (17:31)
[2018-05-25] MEDS: APIXABAN 5 MG TABLET PO SCH (17:32)
[2018-05-25 20:26] VITALS: BP 126/66
[2018-05-25] MEDS: HYDROCODONE/APAP 5-325MG TABLET PO PRN (20:38)
[2018-05-25] MEDS: ATORVASTATIN 40 MG TABLET PO SCH (20:39)
[2018-05-25] MEDS: MEGESTROL ACETATE 400 MG/10 ML LIQUID UDC PO SCH (20:40)
[2018-05-25] MEDS ORDERED: QUETIAPINE FUMARATE 25 MG TABLET PO SCH (21:00)
[2018-05-26] MEDS: ACETAMINOPHEN 325 MG TABLET PO PRN (01:37)
[2018-05-26] MEDS: ZOLPIDEM 5 MG TABLET PO PRN ×2 (01:38→22:45)
[2018-05-26 02:34] LABS: BASOPHILS # (AUTO) 0.1 K/uL (0.0-8.0); BASOPHILS % (AUTO) 0.6 % (0.0-2.0); EOSINOPHILS % (AUTO) 0.2 % (0.0-7.0); HEMOGLOBIN 13.8 g/dL (10.9-14.3); LYMPHOCYTES # (AUTO) 1.7 K/uL (20.0-40.0); LYMPHOCYTES % (AUTO) 14.9 % (20.5-51.5); MEAN CORPUSCULAR HEMOGLOBIN 29.3 uug (24.7-32.8); MEAN CORPUSCULAR HGB CONC 34 g/dL (32.3-35.6); MEAN CORPUSCULAR VOLUME 87.2 fL (75.5-95.3); MONOCYTES # (AUTO) 1.2 K/uL (2.0-10.0); MONOCYTES % (AUTO) 10.1 % (0.0-11.0); NEUTROPHILS # (AUTO) 8.6 K/uL (1.8-8.9); NEUTROPHILS % (AUTO) 74.2 % (38.5-71.5); PLATELET COUNT (AUTO) 477 K/uL (179-408); WHITE BLOOD COUNT (AUTO) 11.6 K/uL (3.8-11.8)
[2018-05-26 03:45] LABS: CARBON DIOXIDE 21 mmol/L (21-32); CHLORIDE 109 mmol/L (98-107); CREATININE 0.9 mg/dL (0.6-1.3); GLUCOSE 99 mg/dL (74-106); POTASSIUM 3.4 mmol/L (3.5-5.1); UREA NITROGEN, BLOOD 28 mg/dL (7-18)
[2018-05-26] MEDS: LEVOTHYROXINE SODIUM 50 MCG TABLET PO SCH (06:41)
[2018-05-26 07:30] VITALS: BP 168/59
[2018-05-26] MEDS: CHOLECALCIFEROL 1,000 UNIT TABLET PO SCH (08:01)
[2018-05-26] MEDS: LISINOPRIL 10 MG TABLET PO SCH (08:01)
[2018-05-26] MEDS: NITROFURANTOIN/NITROFURAN MAC 100 MG CAPSULE PO SCH ×2 (08:01→16:26)
[2018-05-26] MEDS: DOCUSATE SODIUM 100 MG CAPSULE PO SCH ×2 (08:01→16:26)
[2018-05-26] MEDS: MEGESTROL ACETATE 400 MG/10 ML LIQUID UDC PO SCH ×2 (08:01→20:17)
[2018-05-26] MEDS: SENNOSIDES 1 TABLET PO SCH ×2 (08:01→16:26)
[2018-05-26] MEDS: METOPROLOL SUCCINATE XL 25 MG TAB.SR.24H PO SCH (08:01)
[2018-05-26] MEDS: APIXABAN 5 MG TABLET PO SCH ×2 (08:09→16:28)
[2018-05-26] MEDS ORDERED: CHOLECALCIFEROL 400 UNITS TABLET PO SCH (09:00)
[2018-05-26] MEDS ORDERED: POTASSIUM CHLORIDE 10 MEQ TAB.PRT.SR PO ONE (12:15)
[2018-05-26] MEDS: HYDROCODONE/APAP 5-325MG TABLET PO PRN (12:22)
[2018-05-26 16:12] VITALS: BP 151/72
[2018-05-26 20:13] VITALS: BP 124/66
[2018-05-26] MEDS: ATORVASTATIN 40 MG TABLET PO SCH (20:17)
[2018-05-26] MEDS ORDERED: MIRTAZAPINE 15 MG TAB.RAPDIS SL SCH (21:00)
[2018-05-26] MEDS ORDERED: QUETIAPINE FUMARATE 25 MG TABLET PO SCH (21:00)
[2018-05-27] MEDS: HYDROCODONE/APAP 5-325MG TABLET PO PRN (02:18)
[2018-05-27] MEDS: LEVOTHYROXINE SODIUM 50 MCG TABLET PO SCH (06:45)
[2018-05-27 07:13] LABS: BASOPHILS % (AUTO) 0.3 % (0.0-2.0); EOSINOPHILS % (AUTO) 0.2 % (0.0-7.0); HEMATOCRIT 38.2 % (31.2-41.9); HEMOGLOBIN 12.8 g/dL (10.9-14.3); LYMPHOCYTES # (AUTO) 1.1 K/uL (20.0-40.0); LYMPHOCYTES % (AUTO) 6.9 % (20.5-51.5); MEAN CORPUSCULAR HEMOGLOBIN 29.8 uug (24.7-32.8); MEAN CORPUSCULAR HGB CONC 34 g/dL (32.3-35.6); MEAN CORPUSCULAR VOLUME 88.7 fL (75.5-95.3); MONOCYTES # (AUTO) 0.9 K/uL (2.0-10.0); NEUTROPHILS # (AUTO) 13.4 K/uL (1.8-8.9); NEUTROPHILS % (AUTO) 86.6 % (38.5-71.5); PLATELET COUNT (AUTO) 446 K/uL (179-408); RED BLOOD CELL COUNT(AUTO) 4.31 MIL/uL (3.63-4.92); WHITE BLOOD COUNT (AUTO) 15.5 K/uL (3.8-11.8)
[2018-05-27 07:17] LABS: CARBON DIOXIDE 23 mmol/L (21-32); CHLORIDE 113 mmol/L (98-107); CREATININE 1.5 mg/dL (0.6-1.3); GLUCOSE 120 mg/dL (74-106); MAGNESIUM 2.4 mg/dL (1.8-2.4); PHOSPHOROUS 3.9 mg/dL (2.5-4.9); POTASSIUM 3.9 mmol/L (3.5-5.1); UREA NITROGEN, BLOOD 39 mg/dL (7-18)
[2018-05-27 07:30] VITALS: BP 105/49
[2018-05-27] MEDS: CHOLECALCIFEROL 1,000 UNIT TABLET PO SCH (08:13)
[2018-05-27] MEDS: SENNOSIDES 1 TABLET PO SCH (08:13)
[2018-05-27 08:14] VITALS: BP 105/49
[2018-05-27] MEDS: METOPROLOL SUCCINATE XL 25 MG TAB.SR.24H PO SCH (08:14)
[2018-05-27] MEDS: DOCUSATE SODIUM 100 MG CAPSULE PO SCH (08:14)
[2018-05-27] MEDS: NITROFURANTOIN/NITROFURAN MAC 100 MG CAPSULE PO SCH (08:14)
[2018-05-27] MEDS: MEGESTROL ACETATE 400 MG/10 ML LIQUID UDC PO SCH (08:19)
[2018-05-27] MEDS: APIXABAN 5 MG TABLET PO SCH (08:19)
[2018-05-27] MEDS ORDERED: LISINOPRIL 20 MG TABLET PO SCH (09:00)
[2018-05-27] MEDS ORDERED: LISINOPRIL 10 MG TABLET PO SCH (09:00)
[2018-05-27] MEDS ORDERED: LEVOFLOXACIN 500 MG TABLET PO SCH (11:15)
[2018-05-27] MEDS ORDERED: IV NS 1000 ML 1,000 ML IV ONE (11:15)
[2018-05-27 12:26] LABS: *BILIRUBIN,URIN 1+ (NEGATIVE); *BLOOD, URINE 1+ (NEGATIVE); *CLARITY,URINE CLEAR (CLEAR); *COLOR,URINE YELLOW (YELLOW); *KETONES,URINE TRACE (NEGATIVE); *PROTEIN,URINE 1+ (NEGATIVE); *UROBILINOGEN,URINE 0.2 E.U./dl (NORMAL); LEUKOCYTE ESTERASE ,URINE TRACE (NEGATIVE); NITRITE, URINE NEGATIVE (NEGATIVE); PH,URINE 5.5 (5.0-8.0); UGLUCOSE NEGATIVE (NEGATIVE)
[2018-05-27 12:29] LABS: BACTERIA,URINE FEW /HPF (NONE SEEN); RBC,URINE 0-3 /HPF (0-3); SQUAMOUS EPITHELIAL CELL,UR FEW /HPF (NONE SEEN); YEAST,URINE BUDDING YEAST /HPF (NONE SEEN)
[2018-05-27 12:36] LABS: *CREATININE,URINE 203.9 mg/dL (30-125); *URINE TOTAL PROTEIN RANDOM 49.7 mg/dL (<150/24HR)
[2018-05-27] MEDS ORDERED: CEFTRIAXONE 1 G VIAL IM SCH (13:00)
[2018-05-27] MEDS ORDERED: LEVO500T2 PO (18:55)
[2018-05-27] MEDS ORDERED: ALBU1.25 NEB (18:55)
[2018-05-27] MEDS ORDERED: ALBU2.5V13 IH (18:55)
[2018-05-27] MEDS ORDERED: QUET25TA PO (18:55)
[2018-05-27] MEDS ORDERED: ZOLP5TAB2 PO (18:55)
[2018-05-27] MEDS ORDERED: ATORVASTATIN 40 MG TABLET PO SCH (21:00)
== END 2018-05-27 14:37 | disposition short-term general hospital (02) | DRG 885 ==
LOC: GPS 20:32
PROVIDERS: ADMIT Psychiatry & Neurology Psychiatry; ATTEND Internal Medicine
DX: F29 Unspecified psychosis not due to a substance or known physiological condition (principal); F01.51 Vascular dementia, unspecified severity, with behavioral disturbance; N17.0 Acute kidney failure with tubular necrosis; I69.351 Hemiplegia and hemiparesis following cerebral infarction affecting right dominant side; N39.0 Urinary tract infection, site not specified; I42.9 Cardiomyopathy, unspecified; F39 Unspecified mood [affective] disorder; I69.819 Unspecified symptoms and signs involving cognitive functions following other cerebrovascular disease; I69.320 Aphasia following cerebral infarction; I48.0 Paroxysmal atrial fibrillation; E03.9 Hypothyroidism, unspecified; E78.00 Pure hypercholesterolemia, unspecified; I25.2 Old myocardial infarction; I25.10 Atherosclerotic heart disease of native coronary artery without angina pectoris; M34.9 Systemic sclerosis, unspecified; J45.909 Unspecified asthma, uncomplicated; E78.5 Hyperlipidemia, unspecified; Z95.5 Presence of coronary angioplasty implant and graft; R33.9 Retention of urine, unspecified; I12.9 Hypertensive chronic kidney disease with stage 1 through stage 4 chronic kidney disease, or unspecified chronic kidney disease; N18.1 Chronic kidney disease, stage 1
CPT/HCPCS: 36415; 70030-TC; 83735; 84100; 84156; 84300; 85025; 87040; 87086; 93005; J0696; J8999

== ENCOUNTER 2018-05-27 16:27 | Inpatient (IN) | payer MEDICARE, BC, MEDICAID ==
[~2018-05-27] VITALS: Ht 162.6 cm; Wt 63.0 kg
[2018-05-27 16:00] VITALS: BP 124/58
[~2018-05-27 16:27] MED LIST changes: -ALBU8.5H8 IH; -BISA-79 RC; +BISA5TAB10 PO; -DULO30CA2 PO; -LORA1TAB PO; -NITR100C11 PO
[2018-05-27] MEDS ORDERED: IV NS 1000 ML 1,000 ML IV SCH (18:00)
[2018-05-27] MEDS: IV NS 1000 ML 1,000 ML IV SCH (18:25)
[2018-05-27] MEDS ORDERED: ALBU1.25 NEB (18:55)
[2018-05-27] MEDS ORDERED: LEVO500T2 PO (18:55)
[2018-05-27] MEDS ORDERED: QUET25TA PO (18:55)
[2018-05-27] MEDS ORDERED: ZOLP5TAB2 PO (18:55)
[2018-05-27] MEDS ORDERED: ALBU2.5V13 IH (18:55)
[2018-05-27] MEDS ORDERED: MICAFUNGIN SODIUM 50 MG IV ONE (19:45)
[2018-05-27 20:20] VITALS: BP 130/65
[2018-05-27] MEDS: MIRTAZAPINE 15 MG TABLET PO SCH (20:47)
[2018-05-27] MEDS ORDERED: QUETIAPINE FUMARATE 25 MG TABLET PO SCH (21:00)
[2018-05-27] MEDS: MICAFUNGIN SODIUM 100 MG in IV NORMAL SALINE 100 ML IV SCH (21:53)
[2018-05-28 04:38] VITALS: BP 129/45
[2018-05-28] MEDS: HYDROCODONE/APAP 5-325MG TABLET PO PRN (04:49)
[2018-05-28 06:21] LABS: BASOPHILS % (AUTO) 0.4 % (0.0-2.0); EOSINOPHILS # (AUTO) 0.2 K/uL (0.0-0.7); EOSINOPHILS % (AUTO) 1.5 % (0.0-7.0); HEMATOCRIT 35.1 % (31.2-41.9); LYMPHOCYTES # (AUTO) 1.7 K/uL (20.0-40.0); LYMPHOCYTES % (AUTO) 15.5 % (20.5-51.5); MEAN CORPUSCULAR HGB CONC 34 g/dL (32.3-35.6); MEAN CORPUSCULAR VOLUME 87.7 fL (75.5-95.3); MONOCYTES # (AUTO) 0.9 K/uL (2.0-10.0); MONOCYTES % (AUTO) 8.6 % (0.0-11.0); PLATELET COUNT (AUTO) 369 K/uL (179-408); RED BLOOD CELL COUNT(AUTO) 4.01 MIL/uL (3.63-4.92); WHITE BLOOD COUNT (AUTO) 10.8 K/uL (3.8-11.8)
[2018-05-28 06:30] LABS: CARBON DIOXIDE 23 mmol/L (21-32); CHLORIDE 112 mmol/L (98-107); CREATININE 1.3 mg/dL (0.6-1.3); GLUCOSE 138 mg/dL (74-106); PHOSPHOROUS 2.9 mg/dL (2.5-4.9); POTASSIUM 3.4 mmol/L (3.5-5.1); UREA NITROGEN, BLOOD 38 mg/dL (7-18)
[2018-05-28 07:33] VITALS: BP 134/51
[2018-05-28] MEDS ORDERED: METHYL SALICYLATE/MENTHOL CREAM 28 GM TUBE TOP PRN (08:00)
[2018-05-28] MEDS ORDERED: Z GUARD REMEDY PASTE 57 GM TUBE TOP PRN (08:00)
[2018-05-28] MEDS ORDERED: BISACODYL 5 MG TABLET.DR PO PRN (08:00)
[2018-05-28] MEDS ORDERED: MAG HYDROX/AL HYDROX/SIMETH 30 ML LIQUID UDC PO PRN (08:00)
[2018-05-28] MEDS ORDERED: ZOLPIDEM 5 MG TABLET PO PRN (08:00)
[2018-05-28] MEDS ORDERED: ALBUTEROL SULFATE 1.25 MG/3 ML NEBU NEB PRN (08:00)
[2018-05-28] MEDS ORDERED: MIRALAX 17 GM POWD.PACK PO SCH (08:00)
[2018-05-28] MEDS ORDERED: QUETIAPINE FUMARATE 25 MG TABLET PO PRN (08:00)
[2018-05-28] MEDS ORDERED: HYDROCODONE/APAP 5-325MG TABLET PO SCH (08:00)
[2018-05-28] MEDS ORDERED: ALBUTEROL SULFATE 2.5 MG/ 0.5 ML NEBU IH PRN (08:00)
[2018-05-28] MEDS ORDERED: FLEET ENEMA 133 ML BOTTLE RC PRN (08:00)
[2018-05-28] MEDS ORDERED: CEFTRIAXONE 1 G in IV DEXTROSE 5% 50 ML IV SCH ×2 (09:00→13:00)
[2018-05-28] MEDS ORDERED: LEVOFLOXACIN 500 MG TABLET PO SCH (09:00)
[2018-05-28] MEDS ORDERED: DOCUSATE SODIUM 100 MG CAPSULE PO SCH (09:00)
[2018-05-28] MEDS ORDERED: CEFTRIAXONE 1 G VIAL IV SCH (09:00)
[2018-05-28] MEDS ORDERED: DOCUSATE SODIUM 100 MG/10 ML LIQUID UDC GT SCH (09:15)
[2018-05-28] MEDS: SENNOSIDES 1 TABLET PO SCH ×2 (09:23→16:48)
[2018-05-28] MEDS: CHOLECALCIFEROL 1,000 UNIT TABLET PO SCH (09:24)
[2018-05-28] MEDS: ACETAMINOPHEN 325 MG TABLET PO PRN (09:24)
[2018-05-28] MEDS: METOPROLOL SUCCINATE XL 25 MG TAB.SR.24H PO SCH (09:25)
[2018-05-28] MEDS: APIXABAN 5 MG TABLET PO SCH ×2 (10:17→16:51)
[2018-05-28] MEDS: MEGESTROL ACETATE 400 MG/10 ML LIQUID UDC PO SCH ×2 (10:17→20:13)
[2018-05-28 10:57] VITALS: BP 100/37
[2018-05-28] MEDS: CEFTRIAXONE 1 G in IV DEXTROSE 5% 50 ML IV SCH (12:10)
[2018-05-28] MEDS: IV NS 1000 ML 1,000 ML IV SCH (12:49)
[2018-05-28] MEDS ORDERED: POTASSIUM CHLORIDE 20 MEQ TAB.PRT.SR PO ONE (14:15)
[2018-05-28 15:10] VITALS: BP 118/45
[2018-05-28 19:00] VITALS: BP 124/57
[2018-05-28] MEDS: MIRTAZAPINE 15 MG TABLET PO SCH (20:13)
[2018-05-28] MEDS: QUETIAPINE FUMARATE 25 MG TABLET PO SCH (20:13)
[2018-05-28] MEDS: DOCUSATE SODIUM 100 MG/10 ML LIQUID UDC PO SCH (20:13)
[2018-05-28] MEDS: ATORVASTATIN 40 MG TABLET PO SCH (20:14)
[2018-05-28] MEDS: MICAFUNGIN SODIUM 100 MG in IV NORMAL SALINE 100 ML IV SCH (20:32)
[2018-05-29 04:00] VITALS: BP 144/57
[2018-05-29] MEDS: LEVOTHYROXINE SODIUM 50 MCG TABLET PO SCH (06:33)
[2018-05-29 07:14] LABS: BASOPHILS # (AUTO) 0.1 K/uL (0.0-8.0); BASOPHILS % (AUTO) 0.7 % (0.0-2.0); EOSINOPHILS # (AUTO) 0.1 K/uL (0.0-0.7); EOSINOPHILS % (AUTO) 1.5 % (0.0-7.0); HEMATOCRIT 37.9 % (31.2-41.9); HEMOGLOBIN 12.5 g/dL (10.9-14.3); LYMPHOCYTES # (AUTO) 2.5 K/uL (20.0-40.0); LYMPHOCYTES % (AUTO) 25.6 % (20.5-51.5); MEAN CORPUSCULAR HEMOGLOBIN 29.7 uug (24.7-32.8); MEAN CORPUSCULAR HGB CONC 33 g/dL (32.3-35.6); MEAN CORPUSCULAR VOLUME 90.4 fL (75.5-95.3); MONOCYTES % (AUTO) 9.8 % (0.0-11.0); NEUTROPHILS # (AUTO) 6.1 K/uL (1.8-8.9); NEUTROPHILS % (AUTO) 62.4 % (38.5-71.5); PLATELET COUNT (AUTO) 371 K/uL (179-408); RED BLOOD CELL COUNT(AUTO) 4.19 MIL/uL (3.63-4.92); WHITE BLOOD COUNT (AUTO) 9.8 K/uL (3.8-11.8)
[2018-05-29 07:19] LABS: ALANINE AMINOTRANSFERASE 21 U/L (14-59); ALKALINE PHOSPHATASE 60 U/L (50-136); ASPARTATE AMINOTRANSFERASE 25 U/L (15-37); BILIRUBIN,TOTAL 0.4 mg/dL (0.2-1.0); CARBON DIOXIDE 21 mmol/L (21-32); CHLORIDE 116 mmol/L (98-107); CREATININE 0.8 mg/dL (0.6-1.3); GLUCOSE 102 mg/dL (74-106); MAGNESIUM 2.1 mg/dL (1.8-2.4); PHOSPHOROUS 2.8 mg/dL (2.5-4.9); POTASSIUM 3.8 mmol/L (3.5-5.1); TOTAL PROTEIN, SERUM 6.2 g/dL (6.4-8.2); UREA NITROGEN, BLOOD 22 mg/dL (7-18)
[2018-05-29] MEDS: CHOLECALCIFEROL 1,000 UNIT TABLET PO SCH (08:54)
[2018-05-29] MEDS: MEGESTROL ACETATE 400 MG/10 ML LIQUID UDC PO SCH ×2 (08:54→20:07)
[2018-05-29] MEDS: SENNOSIDES 1 TABLET PO SCH ×2 (08:54→17:32)
[2018-05-29] MEDS: DOCUSATE SODIUM 100 MG/10 ML LIQUID UDC PO SCH ×2 (08:54→20:02)
[2018-05-29] MEDS: APIXABAN 5 MG TABLET PO SCH ×2 (08:55→17:33)
[2018-05-29] MEDS: METOPROLOL SUCCINATE XL 25 MG TAB.SR.24H PO SCH (09:05)
[2018-05-29] MEDS: CEFTRIAXONE 1 G in IV DEXTROSE 5% 50 ML IV SCH (12:25)
[2018-05-29] MEDS: HYDROCODONE/APAP 5-325MG TABLET PO PRN (17:32)
[2018-05-29] MEDS: MICAFUNGIN SODIUM 100 MG in IV NORMAL SALINE 100 ML IV SCH (19:48)
[2018-05-29] MEDS: ATORVASTATIN 40 MG TABLET PO SCH (19:57)
[2018-05-29] MEDS: QUETIAPINE FUMARATE 25 MG TABLET PO SCH (20:01)
[2018-05-29 20:50] VITALS: BP 147/66
[2018-05-29] MEDS ORDERED: MIRTAZAPINE 15 MG TABLET PO SCH (21:00)
[2018-05-30] MEDS: ACETAMINOPHEN 325 MG TABLET PO PRN (00:14)
[2018-05-30 04:49] VITALS: BP 133/60
[2018-05-30] MEDS: LEVOTHYROXINE SODIUM 50 MCG TABLET PO SCH (06:01)
[2018-05-30] MEDS ORDERED: MIRT15TA7 PO (07:33)
[2018-05-30] MEDS ORDERED: MICA100V IV (07:33)
[2018-05-30] MEDS: DOCUSATE SODIUM 100 MG/10 ML LIQUID UDC PO SCH (09:00)
[2018-05-30 09:29] VITALS: BP 126/72
[2018-05-30] MEDS: METOPROLOL SUCCINATE XL 25 MG TAB.SR.24H PO SCH (09:29)
[2018-05-30] MEDS: CHOLECALCIFEROL 1,000 UNIT TABLET PO SCH (09:29)
[2018-05-30] MEDS: SENNOSIDES 1 TABLET PO SCH ×2 (09:30→17:48)
[2018-05-30] MEDS: MEGESTROL ACETATE 400 MG/10 ML LIQUID UDC PO SCH (09:31)
[2018-05-30] MEDS: APIXABAN 5 MG TABLET PO SCH ×2 (09:32→17:49)
[2018-05-30] MEDS: HYDROCODONE/APAP 5-325MG TABLET PO PRN (11:01)
[2018-05-31] MEDS ORDERED: QUETIAPINE FUMARATE 25 MG TABLET PO SCH (08:00)
== END 2018-05-30 18:54 | DRG 872 ==
LOC: MED 16:27
PROVIDERS: ADMIT Internal Medicine; ATTEND Internal Medicine
DX: A41.9 Sepsis, unspecified organism (principal); B37.49 Other urogenital candidiasis; I69.351 Hemiplegia and hemiparesis following cerebral infarction affecting right dominant side; F32.3 Major depressive disorder, single episode, severe with psychotic features; R33.9 Retention of urine, unspecified; M34.9 Systemic sclerosis, unspecified; E03.9 Hypothyroidism, unspecified; I48.0 Paroxysmal atrial fibrillation; I69.320 Aphasia following cerebral infarction; I69.919 Unspecified symptoms and signs involving cognitive functions following unspecified cerebrovascular disease; F01.50 Vascular dementia, unspecified severity, without behavioral disturbance, psychotic disturbance, mood disturbance, and anxiety; M19.90 Unspecified osteoarthritis, unspecified site; E78.5 Hyperlipidemia, unspecified; Z79.899 Other long term (current) drug therapy; Z79.01 Long term (current) use of anticoagulants; Z88.0 Allergy status to penicillin; I25.10 Atherosclerotic heart disease of native coronary artery without angina pectoris; I11.0 Hypertensive heart disease with heart failure; I50.9 Heart failure, unspecified; J45.909 Unspecified asthma, uncomplicated; I25.2 Old myocardial infarction
CPT/HCPCS: 36415; 71045; 83735; 84100; 85025; 87086; 93005; 97110; 97112; 97165; 97530; A4663; G0378; J0696; J2248; J3490; J7030; J7060; J8999

== ENCOUNTER 2018-07-12 10:15 | Inpatient (IN) | payer MEDICARE, BC, MEDICAID ==
[~2018-07-12] VITALS: Ht 162.6 cm; Wt 62.6 kg
[2018-07-12] VITALS (35 sets, daily range): BP systolic 69–186; BP diastolic 43–92
[~2018-07-12 10:15] MED LIST changes: +ALBU2.5V13 IH; -ALBU8.5H8 INH; -HYDR-3326 PO; -LISI10TA5 PO; -MEGE400O2 PO; +MICA100V IV; +MIRT15TA7 PO; -MODA100T14 PO; -VERA120C3 PO
[2018-07-12] MEDS ORDERED: AMIODARONE HCL IV 900 MG in IV DEXTROSE 5% 482 ML IV PRN (10:30)
[2018-07-12] MEDS ORDERED: AMIODARONE HCL IV 150 MG in IV DEXTROSE 5% 100 ML IV ONE (10:30)
[2018-07-12] MEDS ORDERED: AMIODARONE HCL 150 MG/3 ML VIAL IV ONE ×2 (10:33→10:37)
--- NOTE | 2018-07-12 10:38 | NUR ---
PT IS IN ROOM #1A. DR GRANADOS EVALUATED THE PT.
[2018-07-12] MEDS ORDERED: IV NORMAL SALINE 250 ML IV ONE (10:40)
[2018-07-12] MEDS ORDERED: IOHEXOL 300MG/ML 100 ML INFUS..BTL ONE (10:40)
[2018-07-12] MEDS ORDERED: SWABABLE VALVE TRANSFER SET EA MC ONE (10:40)
[2018-07-12] MEDS ORDERED: ONDANSETRON 4 MG/2 ML VIAL IV ONE (10:45)
[2018-07-12] MEDS ORDERED: HYDROMORPHONE 1 MG/1 ML DISP.SYRIN IV ONE (10:45)
[2018-07-12] MEDS ORDERED: CLINDAMYCIN PHOSPHATE IV 900 MG in IV DEXTROSE 5% 100 ML IV ONE (10:45)
[2018-07-12 10:46] LABS: BASOPHILS # (AUTO) 0.1 K/uL (0.0-8.0); BASOPHILS % (AUTO) 0.6 % (0.0-2.0); HEMOGLOBIN 10.5 g/dL (10.9-14.3); LYMPHOCYTES # (AUTO) 1.7 K/uL (20.0-40.0); MEAN CORPUSCULAR HEMOGLOBIN 31.5 uug (24.7-32.8); MEAN CORPUSCULAR HGB CONC 34 g/dL (32.3-35.6); MEAN CORPUSCULAR VOLUME 93.1 fL (75.5-95.3); MONOCYTES # (AUTO) 1.3 K/uL (2.0-10.0); MONOCYTES % (AUTO) 12.2 % (0.0-11.0); NEUTROPHILS # (AUTO) 7.5 K/uL (1.8-8.9); NEUTROPHILS % (AUTO) 71.2 % (38.5-71.5); PLATELET COUNT (AUTO) 152 K/uL (179-408); RED BLOOD CELL COUNT(AUTO) 3.33 MIL/uL (3.63-4.92); WHITE BLOOD COUNT (AUTO) 10.5 K/uL (3.8-11.8)
--- NOTE | 2018-07-12 10:53 | NUR ---
DR GRANADOS DISCUSSED PT'S DIAGNOSIS WITH PT'S SON.
[2018-07-12] MEDS ORDERED: ZINC220C8 PO (10:54)
[2018-07-12] MEDS ORDERED: LEVO75TA7 PO (10:54)
[2018-07-12] MEDS ORDERED: ASCO500C18 PO (10:54)
[2018-07-12] MEDS ORDERED: MAGN400O6 PO (10:54)
[2018-07-12] MEDS ORDERED: OMEG1CAP PO (10:54)
[2018-07-12] MEDS ORDERED: AMIN30LI2 PO (10:54)
[2018-07-12] MEDS ORDERED: MULT-213 PO (10:54)
[2018-07-12] MEDS ORDERED: HYDR-3326 PO (10:54)
[2018-07-12] MEDS ORDERED: DIVA125C2 PO (10:54)
[2018-07-12] MEDS ORDERED: QUET25TA PO ×2 (10:54)
[2018-07-12 11:00] LABS: CARBON DIOXIDE 24 mmol/L (21-32); CHLORIDE 109 mmol/L (98-107); CREATININE 1.2 mg/dL (0.6-1.3); GLUCOSE 121 mg/dL (74-106); POTASSIUM 3.6 mmol/L (3.5-5.1); UREA NITROGEN, BLOOD 49 mg/dL (7-18)
[2018-07-12] MEDS ORDERED: NOREPINEPHRINE BITARTRATE 8 MG in IV DEXTROSE 5% 500 ML IV PRN (11:00)
[2018-07-12 11:12] LABS: ALANINE AMINOTRANSFERASE 42 U/L (14-59); ALKALINE PHOSPHATASE 133 U/L (50-136); ASPARTATE AMINOTRANSFERASE 46 U/L (15-37); BILIRUBIN,DIRECT 0.1 mg/dL (0.0-0.2); BILIRUBIN,TOTAL 0.3 mg/dL (0.2-1.0); TOTAL PROTEIN, SERUM 6.4 g/dL (6.4-8.2)
[2018-07-12 11:13] LABS: THYROID STIMULATING HORMONE 2.803 mIU/mL (0.358-3.740)
[2018-07-12] MEDS ORDERED: ONDANSETRON 4 MG/2 ML VIAL ONE (11:17)
[2018-07-12] MEDS ORDERED: IV NS 1000 ML 1,000 ML IV ONE (11:30)
[2018-07-12] MEDS ORDERED: IV NORMAL SALINE 500 ML BAG IV ONE (11:30)
[2018-07-12] MEDS ORDERED: HYDROMORPHONE 1 MG/1 ML DISP.SYRIN ONE (11:37)
[2018-07-12] MEDS ORDERED: CLINDAMYCIN PHOSPHATE 900 MG/6 ML VIAL ONE (11:37)
--- NOTE | 2018-07-12 12:51 | NUR ---
REPORT GIVEN TO DISHWASHING MACHINE OPERATOR. PT WAS TRANSFERED TO CCU ROOM #3.
[2018-07-12] MEDS ORDERED: MAGNESIUM HYDROXIDE 30 ML LIQUID UDC PO PRN (13:15)
[2018-07-12] MEDS ORDERED: ACETAMINOPHEN 325 MG TABLET PO PRN (13:15)
[2018-07-12] MEDS ORDERED: BISACODYL 5 MG TABLET.DR PO PRN (13:15)
[2018-07-12] MEDS ORDERED: FLEET ENEMA 133 ML BOTTLE RC PRN (13:15)
[2018-07-12] MEDS ORDERED: ALBUTEROL SULFATE 2.5 MG/ 0.5 ML NEBU IH PRN (13:15)
--- NOTE | 2018-07-12 13:49 | NUR ---
RECEIVED AN 88 Y/O FEMALE PT FROM ERSORAYA RN. A CASE OF A.FIB, RVR, CHF. PT IS ALERT CONFUSED, HX OF RT SIDE WEAKNESS/ STROKE IN . PT UPON ARRIVAL TO ICU CONNECTED TO ECG MONITOR, BREATHING VIA NC 3LPM. PT NOTED TO HAVE TO IV LINE ON RT AC, RT ARM G20. RECEIVING AMIODARONE AT 1MG/HR. PT NOTED TO HAVE BRUISES ON BOTH LOWE LEGS, WITH LACERATIONS. IMAGES TAKEN AND PUT IN FILE. NOTED TO HAVE A RT JAW INFECTION SWELLED RT CHEEK.
--- NOTE | 2018-07-12 14:30 | NUR ---
DR BOND INFORMED ABOUT PATIENT ARRIVING CCU, AND INFORMED ABOUT PATIENT BEING AGITATED AND INCONTINENT, ORDERED TO INSERT FC AND GIVE PRN ATIVAN AND START ON PUREE DIET. ALL ORDERS RECEIVED
[2018-07-12] MEDS: LORAZEPAM 2 MG/1 ML VIAL IV PRN ×2 (14:54→23:03)
--- NOTE | 2018-07-12 16:00 | NUR ---
PATIENT BECAME HYPOTENSIVE, LEVOPHED DRIP STARTED, TO CONTINUE TO MONITOR, SCD'S APPLIED ON PT
[2018-07-12] MEDS: DIVALPROEX SPRINKLE 125 MG CAP.SPRINK PO SCH (17:12)
[2018-07-12] MEDS: OMEGA-3 FATTY ACIDS/FISH OIL CAPSULE PO SCH (17:12)
[2018-07-12] MEDS: SENNOSIDES 1 TABLET PO SCH (17:12)
[2018-07-12] MEDS: QUETIAPINE FUMARATE 25 MG TABLET PO SCH ×2 (17:12→20:17)
[2018-07-12] MEDS: DOCUSATE SODIUM 100 MG CAPSULE PO SCH (17:12)
[2018-07-12] MEDS: APIXABAN 5 MG PO SCH (17:13)
[2018-07-12] MEDS: NOREPINEPHRINE BITARTRATE 8 MG in IV DEXTROSE 5% 500 ML IV PRN (19:13)
--- NOTE | 2018-07-12 19:30 | NUR ---
Report received. Call placed to Dr. Priscilla soto re: patient's low urine output on day shift. Dr. Sanchez called back; no orders. Will continue to monitor output. Assessment done. Patient moans and groans. No appropriate verbal responses to questions. Mildly restless; moving L arm actively. 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 On continuous Amiodarone drip at 0.5mg/min. Monitor: Afib uncontrolled rate. Levophed drip titrated for BP support. Addendum: 07/13/18 at 0154 by KAYLYNN COOPER RN Amended: Links added. Addendum: 07/13/18 at 0156 by KAYLYNN COOPER RN Amended: Links added.
--- NOTE | 2018-07-12 19:45 | NUR ---
Levophed drip titrated up to keep SBP above 90. See IV spread sheet for rates and dosages. Addendum: 07/13/18 at 0156 by KAYLYNN COOPER RN Amended: Links added.
--- NOTE | 2018-07-12 20:10 | NUR ---
Still mildly restless, moaning. Son visited. Medicated with [place]. PO meds crushed and given with applesauce. No swallowing difficulty. HOB elevated above 45 degrees at all times. On aspiration precautions.
[2018-07-12] MEDS: HYDROCODONE/APAP 5-325MG TABLET PO PRN (20:13)
[2018-07-12] MEDS: MIRTAZAPINE 15 MG TABLET PO SCH (20:17)
--- NOTE | 2018-07-12 20:45 | NUR ---
Levophed drip titrated up again. EKG remains uncontrolled Afib. Call placed to Dr. Sanchez; called back immediately. Orders received. Pharmacy notified of Neosynephrine drip order. Addendum: 07/13/18 at 06 by KAYLYNN COOPER RN Amended: Links added. Addendum: 07/13/18 at 06 by KAYLYNN COOPER RN Amended: Links added. Addendum: 07/13/18 at 0629 by KAYLYNN COOPER RN Amended: Links added. Addendum: 07/13/18 at 0632 by KAYLYNN COOPER RN Amended: Links added.
[2018-07-12] MEDS ORDERED: MIRALAX 17 GM POWD.PACK PO PRN (21:00)
--- NOTE | 2018-07-12 21:15 | NUR ---
Patient's son Sridhar notified of PICC line order. Phone consent obtained. Diesel Engine Mechanic informed. As per Lena supervisor ovens PICC line will be done in am. Vasopressor infusing to patent RAC IV. Will monitor closely.
[2018-07-12] MEDS: PHENYLEPHRINE IV 80 MG in IV DEXTROSE 5% 250 ML IV PRN (21:23)
--- NOTE | 2018-07-12 21:23 | NUR ---
Neosynephrine drip started; Levophed drip titrated down as BP tolerates. [place] effective.
--- NOTE | 2018-07-12 23:00 | NUR ---
Saline lock angio gauge#22 inserted to LFA. Patient moaning and with increasing restlessness. Medicated with Ativan IV. Addendum: 07/13/18 at 06 by KAYLYNN COOPER RN Amended: Links added. Addendum: 07/13/18 at 06 by KAYLYNN COOPER RN Amended: Links added. Addendum: 07/13/18 at 0632 by KAYLYNN COOPER RN Amended: Links added.
[2018-07-13] VITALS (91 sets, daily range): BP systolic 71–137; BP diastolic 38–100
--- NOTE | 2018-07-13 02:00 | NUR ---
Coughing non productively. Suctioned orally; patient gets moderately agitated with suctioning. With thick buchanan secretions. Addendum: 07/13/18 at 0629 by KAYLYNN COOPER RN Amended: Links added. Addendum: 07/13/18 at 0632 by KALYYNN COOPER RN Amended: Links added.
[2018-07-13 06:06] LABS: BASOPHILS % (AUTO) 0.2 % (0.0-2.0); EOSINOPHILS % (AUTO) 0.1 % (0.0-7.0); HEMATOCRIT 30.1 % (31.2-41.9); HEMOGLOBIN 10.3 g/dL (10.9-14.3); LYMPHOCYTES # (AUTO) 2.3 K/uL (20.0-40.0); LYMPHOCYTES % (AUTO) 21.3 % (20.5-51.5); MEAN CORPUSCULAR HEMOGLOBIN 31.7 uug (24.7-32.8); MEAN CORPUSCULAR HGB CONC 34 g/dL (32.3-35.6); MEAN CORPUSCULAR VOLUME 92.9 fL (75.5-95.3); MONOCYTES # (AUTO) 1.2 K/uL (2.0-10.0); MONOCYTES % (AUTO) 11.4 % (0.0-11.0); NEUTROPHILS # (AUTO) 7.3 K/uL (1.8-8.9); PLATELET COUNT (AUTO) 191 K/uL (179-408); RED BLOOD CELL COUNT(AUTO) 3.25 MIL/uL (3.63-4.92); WHITE BLOOD COUNT (AUTO) 10.9 K/uL (3.8-11.8)
[2018-07-13 06:12] LABS: CARBON DIOXIDE 25 mmol/L (21-32); CHLORIDE 105 mmol/L (98-107); CREATININE 1.6 mg/dL (0.6-1.3); GLUCOSE 145 mg/dL (74-106); MAGNESIUM 2.9 mg/dL (1.8-2.4); PHOSPHOROUS 6.6 mg/dL (2.5-4.9); POTASSIUM 4.7 mmol/L (3.5-5.1); UREA NITROGEN, BLOOD 51 mg/dL (7-18)
--- NOTE | 2018-07-13 06:31 | NUR ---
Remains on Neosynephrine drip at 100 mcg/min for BP support. Amiodarone drip as per protocol and at 0.5 mg/min. No neuro changes. Sat above 93% on 3 L NC O2. Addendum: 07/13/18 at 0632 by KAYLYNN COOPER RN Amended: Links added.
--- NOTE | 2018-07-13 07:30 | NUR ---
Nursing division road supervisor informed of PICC line insertion order; will call. Ileana CHU informed.
--- NOTE | 2018-07-13 08:00 | NUR ---
REport received.Spoke with re pt condition.Pt remains on Amiodorone gtt at 0.5mg/min.Afib on monitor.Remains on Neosenephrine gtt to support SBP.Will continue to monitor.
[2018-07-13] MEDS: PHENYLEPHRINE IV 80 MG in IV DEXTROSE 5% 250 ML IV PRN (08:37)
[2018-07-13] MEDS: DOCUSATE SODIUM 100 MG CAPSULE PO SCH ×2 (08:38→17:29)
[2018-07-13] MEDS: OMEGA-3 FATTY ACIDS/FISH OIL CAPSULE PO SCH ×2 (08:38→17:29)
[2018-07-13] MEDS: QUETIAPINE FUMARATE 25 MG TABLET PO SCH ×3 (08:38→20:28)
[2018-07-13] MEDS: DIVALPROEX SPRINKLE 125 MG CAP.SPRINK PO SCH ×3 (08:38→17:29)
[2018-07-13] MEDS: SENNOSIDES 1 TABLET PO SCH ×2 (08:38→17:29)
[2018-07-13] MEDS: ZINC SULFATE 220 MG CAPSULE PO SCH (08:38)
[2018-07-13] MEDS: CHOLECALCIFEROL 1,000 UNIT TABLET PO SCH (08:39)
[2018-07-13] MEDS: APIXABAN 5 MG PO SCH (08:40)
[2018-07-13] MEDS ORDERED: METOPROLOL SUCCINATE XL 25 MG TAB.SR.24H PO SCH ×2 (09:00)
[2018-07-13] MEDS ORDERED: CHOLECALCIFEROL 400 UNITS TABLET PO SCH (09:00)
[2018-07-13] MEDS ORDERED: LEVOTHYROXINE SODIUM 75 MCG TABLET PO SCH (09:00)
[2018-07-13] MEDS: AMIODARONE HCL IV 900 MG in IV DEXTROSE 5% 482 ML IV PRN (09:14)
[2018-07-13 09:52] LABS: *BILIRUBIN,URIN NEGATIVE (NEGATIVE); *BLOOD, URINE 3+ (NEGATIVE); *CLARITY,URINE SLIGHTLY CLOUDY (CLEAR); *COLOR,URINE YELLOW (YELLOW); *KETONES,URINE NEGATIVE (NEGATIVE); *UROBILINOGEN,URINE 0.2 E.U./dl (NORMAL); LEUKOCYTE ESTERASE ,URINE 1+ (NEGATIVE); NITRITE, URINE NEGATIVE (NEGATIVE); UGLUCOSE NEGATIVE (NEGATIVE)
[2018-07-13 10:14] LABS: SQUAMOUS EPITHELIAL CELL,UR FEW /HPF (NONE SEEN)
[2018-07-13 10:15] LABS: BACTERIA,URINE MANY /HPF (NONE SEEN); WBC,URINE TNTC /HPF (0-3)
[2018-07-13 10:16] LABS: RBC,URINE 20-50 /HPF (0-3)
[2018-07-13 10:17] LABS: URINE AMORPHOUS URATE FEW /HPF
--- NOTE | 2018-07-13 11:00 | NUR ---
Call re CXR result.Pt remains very congested.
[2018-07-13] MEDS ORDERED: FUROSEMIDE 40 MG/4 ML VIAL IV ONE (11:30)
--- NOTE | 2018-07-13 12:30 | NUR ---
Seen,examined by .
--- NOTE | 2018-07-13 13:04 | NUR ---
CLINICAL PHARMACY NOTE:VANCOMYCIN DOSING Request for vancomycin dosing on 88 y/o female 5'4" 135lbs for pneumonia Temp 98.2f BUN 51 Scr 1.6 WBC 10.9 also on Merrem Vancomycin 1gm ivpb x 1 ordered today. Will dose by levels due to decrease renal function. Random vancomycin level ordered for tomorrow afternoon. Will continue to monitor
--- NOTE | 2018-07-13 13:27 | NUR ---
WOUND CARE CONSULT: PT PRESENTS WITH VERY FRAGILE DRY BRUISED SKIN ON LOWER LEGS WITH SKIN TEAR TO RT LOWER LEG, PRESENT ON ADMISSION. RECOMMENDATIONS MADE FOR SKIN PROTECTION AND CARE. DISCUSSED WITH NURSING STAFF. WILL SEE PRN. SAMUELS IN AGREEMENT WITH PLAN OF CARE. Addendum: 07/13/18 at 1328 by RODRIGO LOPEZ RN Amended: Links added.
--- NOTE | 2018-07-13 14:00 | NUR ---
Pt son at bedside,updated on pt condition.
[2018-07-13] MEDS: MEROPENEM 500 MG in IV NORMAL SALINE 50 ML IV SCH (14:21)
[2018-07-13] MEDS: LORAZEPAM 2 MG/1 ML VIAL IV PRN ×2 (14:55→20:28)
[2018-07-13] MEDS ORDERED: VANCOMYCIN IV 1 G in PREMIXED 0 EACH IV ONE (15:00)
--- NOTE | 2018-07-13 18:00 | NUR ---
Seen,examined by .
[2018-07-13] MEDS: FUROSEMIDE 40 MG/4 ML VIAL IV SCH ×2 (18:21→21:00)
[2018-07-13] MEDS: NOREPINEPHRINE BITARTRATE 8 MG in IV DEXTROSE 5% 500 ML IV PRN (19:48)
--- NOTE | 2018-07-13 20:00 | NUR ---
Some restlessness noted, left arm very active, with tendency to pull out med. lines. Hx CVA with residual weakness right side. Incomprehensible sounds coupled by wailing/crying. Has coughing spells when being moved in bed. First step mattress placed and made comfortable. Started on Levophed as ordered and Neosynephrine titrating to off. Monitor remains uncontrolled AFib, remains on Amiodarone drip until further MD orders. Excellent saturation on NC 3L/min. Nursing comfort measures and aspiration precautions observed at all times. Please see CCU flowsheet for full assessment and clinical data.
[2018-07-13] MEDS: MIRTAZAPINE 15 MG TABLET PO SCH (20:28)
[2018-07-13] MEDS: MINERAL OIL/PETROLATUM,WHITE 57 GM TUBE TOP PRN (20:29)
--- NOTE | 2018-07-13 20:45 | NUR ---
Son at bedside for sometime, aware of pt condition and care plans; appreciative of care.
[2018-07-14] VITALS (46 sets, daily range): BP systolic 83–140; BP diastolic 45–107
[2018-07-14] MEDS: MEROPENEM 500 MG in IV NORMAL SALINE 50 ML IV SCH ×2 (02:24→14:11)
[2018-07-14] MEDS: IV NORMAL SALINE 250 ML IV PRN (02:48)
[2018-07-14] MEDS: LORAZEPAM 2 MG/1 ML VIAL IV PRN ×2 (04:16→22:14)
[2018-07-14 05:23] LABS: BASOPHILS % (AUTO) 0.2 % (0.0-2.0); EOSINOPHILS % (AUTO) 0.2 % (0.0-7.0); HEMOGLOBIN 10.2 g/dL (10.9-14.3); LYMPHOCYTES # (AUTO) 1.6 K/uL (20.0-40.0); LYMPHOCYTES % (AUTO) 14.6 % (20.5-51.5); MEAN CORPUSCULAR HEMOGLOBIN 31.2 uug (24.7-32.8); MEAN CORPUSCULAR HGB CONC 34 g/dL (32.3-35.6); MEAN CORPUSCULAR VOLUME 91.6 fL (75.5-95.3); MONOCYTES # (AUTO) 1.4 K/uL (2.0-10.0); MONOCYTES % (AUTO) 12.8 % (0.0-11.0); NEUTROPHILS # (AUTO) 7.7 K/uL (1.8-8.9); NEUTROPHILS % (AUTO) 72.2 % (38.5-71.5); PLATELET COUNT (AUTO) 181 K/uL (179-408); RED BLOOD CELL COUNT(AUTO) 3.27 MIL/uL (3.63-4.92); WHITE BLOOD COUNT (AUTO) 10.7 K/uL (3.8-11.8)
[2018-07-14 05:34] LABS: ALANINE AMINOTRANSFERASE 48 U/L (14-59); ASPARTATE AMINOTRANSFERASE 52 U/L (15-37); CARBON DIOXIDE 27 mmol/L (21-32); CHLORIDE 108 mmol/L (98-107); CREATININE 1.3 mg/dL (0.6-1.3); GLUCOSE 134 mg/dL (74-106); MAGNESIUM 2.4 mg/dL (1.8-2.4); PHOSPHOROUS 4.7 mg/dL (2.5-4.9); POTASSIUM 3.8 mmol/L (3.5-5.1); UREA NITROGEN, BLOOD 43 mg/dL (7-18)
--- NOTE | 2018-07-14 06:00 | NUR ---
Noted urine becoming cranberry colored, without clots. Lab values this AM stable. Will continue to monitor closely. Please see CCU flowsheet for trends and clinical data.
[2018-07-14] MEDS: LEVOTHYROXINE SODIUM 75 MCG TABLET PO SCH (06:18)
[2018-07-14] MEDS: Z GUARD REMEDY PASTE 57 GM TUBE TOP PRN ×2 (06:19→21:06)
[2018-07-14 07:57] LABS: ABG HCO3 22.2 mmol/L; ABG PCO2 32.1 mmHg (35.0-45.0); ABG PH 7.458 (7.350-7.450); ABG PO2 117.2 mmHg (75.0-100.0); ABG SITE LEFT BRACHIAL; ABG TOTAL HEMOGLOBIN 11.2 G/dL (12.0-16.0); MetHb 0.4 % (0.0-1.5); O2Hb 97.1 % (94.0-97.0); VENT MODE Nasal Cannula
[2018-07-14] MEDS: FUROSEMIDE 40 MG/4 ML VIAL IV SCH ×2 (08:09→21:00)
[2018-07-14] MEDS: SENNOSIDES 1 TABLET PO SCH ×3 (08:10→16:54)
[2018-07-14] MEDS: QUETIAPINE FUMARATE 25 MG TABLET PO SCH ×4 (08:10→21:05)
[2018-07-14] MEDS: OMEGA-3 FATTY ACIDS/FISH OIL CAPSULE PO SCH ×3 (08:10→16:54)
[2018-07-14] MEDS: DOCUSATE SODIUM 100 MG CAPSULE PO SCH ×3 (08:10→16:53)
[2018-07-14] MEDS: DIVALPROEX SPRINKLE 125 MG CAP.SPRINK PO SCH ×4 (08:10→16:53)
[2018-07-14] MEDS: ZINC SULFATE 220 MG CAPSULE PO SCH ×2 (08:10→08:57)
[2018-07-14] MEDS: CHOLECALCIFEROL 1,000 UNIT TABLET PO SCH ×2 (08:11→08:56)
--- NOTE | 2018-07-14 09:02 | NUR ---
AM PO meds held in light of parotitis. Pt with difficulty chewing/swallowing and persistent coughing observed during feeding attempt.
[2018-07-14] MEDS: AMIODARONE HCL IV 900 MG in IV DEXTROSE 5% 482 ML IV PRN (09:07)
--- NOTE | 2018-07-14 09:40 | NUR ---
Dr. Mckeon here to see pt. Full report given. New orders received.
--- NOTE | 2018-07-14 11:25 | NUR ---
Dr. Johnson here to see pt. Full report given. No new orders received.
--- NOTE | 2018-07-14 12:40 | NUR ---
Dr. Domingo here to see pt. Full report given. New orders received. No thoracentesis needed at this time per MD.
[2018-07-14] MEDS: ELIQUIS PO SCH ×2 (13:23→16:53)
--- NOTE | 2018-07-14 14:09 | NUR ---
EFFIE Whitney here to see pt. Full report given. New orders received.
--- NOTE | 2018-07-14 15:08 | NUR ---
CLINICAL PHARMACY NOTE:VANCOMYCIN DOSING Request for vancomycin dosing on 88 y/o female 5'4" 135lbs for pneumonia Temp 98f BUN 43 Scr 1.3 (yesterday 1.6) WBC 10.7 also on Merrem Random level: 10.1 today at 1415 As renal function is resolving, will continue to dose per levels. Based on today's level, dosed another 1gm vanco x1 @ 1530. Next random ordered for tomorrow at 1600. Will check level and re-dose as appropriate. Will follow
[2018-07-14] MEDS ORDERED: VANCOMYCIN IV 1 G in PREMIXED 0 EACH IV ONE (15:30)
--- NOTE | 2018-07-14 16:56 | NUR ---
Evening PO meds held. Pt unable to chew and swallow at this time. Persistent coughing observed during attempted feeding.
--- NOTE | 2018-07-14 17:43 | NUR ---
Spoke with Robb Davies on the telephone. stated that it was okay to downgrade pt to WINNIE status.
[2018-07-14] MEDS ORDERED: IV NORMAL SALINE 250 ML IV PRN (19:00)
--- NOTE | 2018-07-14 19:30 | NUR ---
Report received. Patient admitted July 12, 2018 from [facility] DX: Afib with RVR. PMH includes CVA with R hemiparesis and aphasia, CAD, psychosis HTN and hypothyroidism. Patient opens eyes spontaneously, doesn't follow any commands. Moans and groans but no appropriate verbal responses to questions. Moves L arm and leg with good strength. On continuous Amiodarone drip at 0.5 mg/min via GUERA PICC line. Assessment done; see flow sheet for details. Addendum: 07/15/18 at 0406 by KAYLYNN COOPER RN Amended: Links added.
[2018-07-14] MEDS: MIRTAZAPINE 15 MG TABLET PO SCH (21:05)
[2018-07-14] MEDS: HYDROCODONE/APAP 5-325MG TABLET PO PRN (21:15)
--- NOTE | 2018-07-14 21:15 | NUR ---
Continues to moan and groan. mildly restless. Coughing non productively. Suctioned with thick buchanan bloody tinged secretions. Patient gets extremely agitated with suctioning, grabbing RNs hand with her active L arm. Medicated with [place]. PO meds crushed and given with apple sauce, but with difficulty. Patient is uncooperative. Spitting out some of meds mixed in apple sauce. Aspiration precautions observed at all times.
--- NOTE | 2018-07-14 22:10 | NUR ---
Son visited. Plan of care discussed with him including patient now a WINNIE status. Patient opens eyes to voice, still mildly restless. Alina. Carla IV given. Addendum: 07/15/18 at 0415 by KAYLYNN COOPER RN Amended: Links added.
[2018-07-15] VITALS (12 sets, daily range): BP systolic 91–132; BP diastolic 50–74
[2018-07-15] MEDS: MEROPENEM 500 MG in IV NORMAL SALINE 50 ML IV SCH ×2 (01:25→13:15)
[2018-07-15] MEDS: IV NORMAL SALINE 250 ML IV PRN (02:51)
[2018-07-15 05:25] LABS: BASOPHILS % (AUTO) 0.2 % (0.0-2.0); EOSINOPHILS % (AUTO) 0.2 % (0.0-7.0); HEMATOCRIT 28.7 % (31.2-41.9); HEMOGLOBIN 9.9 g/dL (10.9-14.3); LYMPHOCYTES # (AUTO) 1.2 K/uL (20.0-40.0); MEAN CORPUSCULAR HEMOGLOBIN 31.6 uug (24.7-32.8); MEAN CORPUSCULAR HGB CONC 34 g/dL (32.3-35.6); MONOCYTES # (AUTO) 1.2 K/uL (2.0-10.0); MONOCYTES % (AUTO) 11.2 % (0.0-11.0); NEUTROPHILS # (AUTO) 8.2 K/uL (1.8-8.9); NEUTROPHILS % (AUTO) 77.4 % (38.5-71.5); PLATELET COUNT (AUTO) 168 K/uL (179-408); RED BLOOD CELL COUNT(AUTO) 3.12 MIL/uL (3.63-4.92); WHITE BLOOD COUNT (AUTO) 10.6 K/uL (3.8-11.8)
[2018-07-15 05:43] LABS: ALANINE AMINOTRANSFERASE 37 U/L (14-59); ALKALINE PHOSPHATASE 147 U/L (50-136); ASPARTATE AMINOTRANSFERASE 34 U/L (15-37); BILIRUBIN,TOTAL 0.4 mg/dL (0.2-1.0); CARBON DIOXIDE 28 mmol/L (21-32); CHLORIDE 107 mmol/L (98-107); CREATININE 1.1 mg/dL (0.6-1.3); GLUCOSE 111 mg/dL (74-106); MAGNESIUM 2.4 mg/dL (1.8-2.4); PHOSPHOROUS 4.3 mg/dL (2.5-4.9); POTASSIUM 3.6 mmol/L (3.5-5.1); TOTAL PROTEIN, SERUM 5.6 g/dL (6.4-8.2); UREA NITROGEN, BLOOD 39 mg/dL (7-18)
--- NOTE | 2018-07-15 06:42 | NUR ---
Mildly to moderately SOB during care and activity. Monitored closely. Still gets extremely agitated with suctioning. Remains on Amiodarone drip at 0.5 mg/min; monitor: Afib rate 100's-110's. Addendum: 07/15/18 at 0643 by KAYLYNN COOPER RN Amended: Links added.
[2018-07-15] MEDS: LEVOTHYROXINE SODIUM 75 MCG TABLET PO SCH (06:48)
--- NOTE | 2018-07-15 07:00 | NUR ---
PO Synthroid held. Will endorsed to am shift. Patient is high risk for aspiration.
[2018-07-15] MEDS: DIVALPROEX SPRINKLE 125 MG CAP.SPRINK PO SCH ×3 (08:01→16:54)
[2018-07-15] MEDS: DOCUSATE SODIUM 100 MG CAPSULE PO SCH ×2 (08:01→16:54)
[2018-07-15] MEDS: ZINC SULFATE 220 MG CAPSULE PO SCH (08:02)
[2018-07-15] MEDS: QUETIAPINE FUMARATE 25 MG TABLET PO SCH ×3 (08:02→21:00)
[2018-07-15] MEDS: SENNOSIDES 1 TABLET PO SCH ×2 (08:02→16:54)
[2018-07-15] MEDS: CHOLECALCIFEROL 1,000 UNIT TABLET PO SCH (08:02)
[2018-07-15] MEDS: OMEGA-3 FATTY ACIDS/FISH OIL CAPSULE PO SCH ×2 (08:02→16:54)
[2018-07-15] MEDS: ELIQUIS PO SCH ×2 (08:02→16:54)
[2018-07-15] MEDS: FUROSEMIDE 40 MG/4 ML VIAL IV SCH (08:09)
--- NOTE | 2018-07-15 10:25 | NUR ---
Dr. Borrego here to see pt. Full report given. New orders received.
--- NOTE | 2018-07-15 10:58 | NUR ---
Dr. Domingo here to see pt. Full report given. New orders received.
--- NOTE | 2018-07-15 13:10 | NUR ---
Dr. Mckeon here to see pt. Full report given. stated that it was okay to downgrade pt to telemetry status.
--- NOTE | 2018-07-15 13:39 | NUR ---
CLINICAL PHARMACY NOTE:VANCOMYCIN DOSING S Request for vancomycin dosing on 88 y/o female for pneumonia O Temp 97.8f BUN 39 Scr 1.1 WBC 10.6 HT 162.5 cm WT 63.5 kg Random level: Pending (ordered for today at 1600) Plan As renal function is resolving, will continue to dose per levels. Waiting for vanco random level today at 1600 for further dosing. Will follow Addendum: 07/15/18 at 1723 by FRANCO TALLEY VANCO RANDOM LEVEL 15.3--WILL GIVE VANCO 1GM IVPB X1 TODAY AT 1800. WILL REVIEW SRCR IN AM & IF QUALIFIED WILL DOSE ROUTINE INSTEAD OF BY LEVEL
[2018-07-15] MEDS ORDERED: CEFTRIAXONE 1 G in IV DEXTROSE 5% 50 ML IV SCH (14:00)
--- NOTE | 2018-07-15 16:57 | NUR ---
Pt unable to take PO meds throughout the shift. Pt noted to have difficulty chewing and swallowing. Persistent coughing also observed. Awaiting speech therapist to come and eval.
[2018-07-15] MEDS ORDERED: VANCOMYCIN IV 1 G in PREMIXED 0 EACH IV ONE (18:00)
[2018-07-15] MEDS: AMIODARONE HCL 200 MG TABLET PO SCH (21:00)
[2018-07-15] MEDS: MIRTAZAPINE 15 MG TABLET PO SCH (21:00)
[2018-07-15] MEDS: CEFTRIAXONE 1 G in IV DEXTROSE 5% 50 ML IV SCH (21:03)
[2018-07-16] VITALS (9 sets, daily range): BP systolic 107–150; BP diastolic 48–91
[2018-07-16] MEDS: LORAZEPAM 2 MG/1 ML VIAL IV PRN ×2 (00:39→17:08)
[2018-07-16] MEDS: IV NORMAL SALINE 250 ML IV PRN (03:19)
[2018-07-16 05:07] LABS: BASOPHILS % (AUTO) 0.4 % (0.0-2.0); EOSINOPHILS # (AUTO) 0.1 K/uL (0.0-0.7); EOSINOPHILS % (AUTO) 0.9 % (0.0-7.0); HEMATOCRIT 30.5 % (31.2-41.9); HEMOGLOBIN 10.4 g/dL (10.9-14.3); LYMPHOCYTES # (AUTO) 1.7 K/uL (20.0-40.0); LYMPHOCYTES % (AUTO) 18.1 % (20.5-51.5); MEAN CORPUSCULAR HEMOGLOBIN 31.2 uug (24.7-32.8); MEAN CORPUSCULAR HGB CONC 34 g/dL (32.3-35.6); MEAN CORPUSCULAR VOLUME 91.4 fL (75.5-95.3); MONOCYTES # (AUTO) 1.4 K/uL (2.0-10.0); MONOCYTES % (AUTO) 15.1 % (0.0-11.0); NEUTROPHILS # (AUTO) 6.2 K/uL (1.8-8.9); NEUTROPHILS % (AUTO) 65.5 % (38.5-71.5); PLATELET COUNT (AUTO) 234 K/uL (179-408); RED BLOOD CELL COUNT(AUTO) 3.33 MIL/uL (3.63-4.92); WHITE BLOOD COUNT (AUTO) 9.5 K/uL (3.8-11.8)
[2018-07-16 05:19] LABS: IRON, SERUM 18 ug/dL (50-175)
[2018-07-16 05:43] LABS: ALANINE AMINOTRANSFERASE 33 U/L (14-59); ALKALINE PHOSPHATASE 139 U/L (50-136); ASPARTATE AMINOTRANSFERASE 29 U/L (15-37); BILIRUBIN,TOTAL 0.4 mg/dL (0.2-1.0); CARBON DIOXIDE 29 mmol/L (21-32); CHLORIDE 108 mmol/L (98-107); CREATININE 0.9 mg/dL (0.6-1.3); FERRITIN 115 ng/mL (8-252); GLUCOSE 85 mg/dL (74-106); MAGNESIUM 2.2 mg/dL (1.8-2.4); PHOSPHOROUS 3.4 mg/dL (2.5-4.9); POTASSIUM 3.4 mmol/L (3.5-5.1); TOTAL PROTEIN, SERUM 5.8 g/dL (6.4-8.2); UREA NITROGEN, BLOOD 29 mg/dL (7-18)
[2018-07-16] MEDS: LEVOTHYROXINE SODIUM 75 MCG TABLET PO SCH (06:38)
--- NOTE | 2018-07-16 07:30 | NUR ---
report received from Benito CHU. 88 yr old female was admitted on 07/12/18 parotitis and NSTEMI.patient is lethargic but arousable. moans when awake. od 3 liters nasal cannula. burgos catheter intact, urine dark [place]. ekg is atrial fib up to 130/min. Addendum: 07/16/18 at 0837 by FELTON ARTEAGA RN Amended: Links added.
--- NOTE | 2018-07-16 08:42 | NUR ---
patient has episodes of coughing, unable to expectorate mucus Addendum: 07/16/18 at 0842 by FELTON ARTEAGA RN Amended: Links added.
[2018-07-16] MEDS: ZINC SULFATE 220 MG CAPSULE PO SCH (09:00)
[2018-07-16] MEDS: OMEGA-3 FATTY ACIDS/FISH OIL CAPSULE PO SCH ×2 (09:00→16:55)
[2018-07-16] MEDS ORDERED: FUROSEMIDE 40 MG/4 ML VIAL IV SCH (09:00)
[2018-07-16] MEDS: CHOLECALCIFEROL 1,000 UNIT TABLET PO SCH (09:00)
[2018-07-16] MEDS: SENNOSIDES 1 TABLET PO SCH ×2 (09:00→16:55)
[2018-07-16] MEDS: DIVALPROEX SPRINKLE 125 MG CAP.SPRINK PO SCH ×3 (09:00→16:55)
[2018-07-16] MEDS: ELIQUIS PO SCH ×2 (09:00→17:02)
[2018-07-16] MEDS: AMIODARONE HCL 200 MG TABLET PO SCH (09:00)
[2018-07-16] MEDS: DOCUSATE SODIUM 100 MG CAPSULE PO SCH ×2 (09:00→16:55)
[2018-07-16] MEDS: QUETIAPINE FUMARATE 25 MG TABLET PO SCH ×3 (09:00→21:48)
--- NOTE | 2018-07-16 09:30 | NUR ---
call to robel cardiology re rapid afib Addendum: 07/16/18 at 1057 by FELTON ARTEAGA RN Amended: [place] added. Addendum: 07/16/18 at 1103 by FELTON ARTEAGA RN Amended: Bradley awad.
--- NOTE | 2018-07-16 10:30 | NUR ---
no call back from cardiology.follow up call on epic cardiology made. Addendum: 07/16/18 at 1103 by FELTON ARTEAGA RN Amended: Links added.
--- NOTE | 2018-07-16 10:55 | NUR ---
talked to Dr Kristina adair patient's status including rapid atrial fib, lethargy, and inabliiry to swallow. son at the bedside Addendum: 07/16/18 at 1056 by FELTON ARTEAGA RN Amended: Links added. Addendum: 07/16/18 at 1057 by FELTON ARTEAGA RN Amended: Links added. Addendum: 07/16/18 at 1103 by FELTON ARTEAGA RN Amended: Links added.
[2018-07-16] MEDS: POTASSIUM CHLORIDE 50 ML IV SCH ×2 (11:27→12:55)
[2018-07-16] MEDS ORDERED: DIGOXIN 500 MCG/2 ML AMP IV ONE (12:00)
--- NOTE | 2018-07-16 13:44 | NUR ---
arjun given IV as ordered Addendum: 07/16/18 at 1751 by FELTON ARTEAGA RN Amended: [place] added. Addendum: 07/16/18 at 1835 by FELTON ARTEAGA RN Amended: Bradley awda.
--- NOTE | 2018-07-16 14:12 | NUR ---
CLINICAL PHARMACY NOTE:VANCOMYCIN DOSING S Request for vancomycin dosing on 88 y/o female for pneumonia O Temp 98.5f BUN 29 Scr 0.9 WBC 9.5 HT 162.5 cm WT 63.5 kg Plan Since srcr has returned to normal, will start vanco 1gm IVPB q29h for predicted vancomycin trough level of 15.6 mcg/ml at steady state. 2nd dose today at 2300. Will monitor renal function & adjust the dose if needed. Will order vanco trough level before 4th dose (not yet ordered). Will follow
[2018-07-16 14:41] LABS: EOSINOPHILS % (MANUAL) 1 % (0-8); LYMPHOCYTES % (MANUAL) 12 % (20-40); MONOCYTES % (MANUAL) 13 % (2-10); NEUTROPHILS % (MANUAL) 74 % (42-75)
--- NOTE | 2018-07-16 16:30 | NUR ---
patient is slightly more awake, pm care done, 1700 medication crushed and given with pureed fruit. able to swallow pills. pm care done. Addendum: 07/16/18 at 184 by FELTON ARTEAGA RN Amended: Links added. Addendum: 07/16/18 at 1841 by FELTON ARTEAGA RN Amended: Links added. Addendum: 07/16/18 at 1849 by FELTON ARTEAGA RN Amended: Links added.
--- NOTE | 2018-07-16 16:45 | NUR ---
converted back to NSR 70-80/MIN Addendum: 07/16/18 at 1842 by FELTON ARTEAGA RN Amended: [place] added. Addendum: 07/16/18 at 1849 by FELTON ARTEAGA RN Amended: [place] added.
[2018-07-16] MEDS: DIGOXIN 500 MCG/2 ML AMP IV SCH ×2 (16:58→23:22)
--- NOTE | 2018-07-16 18:48 | NUR ---
back to atrial fib hr 110 -120/min. son at the bedside. patient had some pureed foods and milk Addendum: 07/16/18 at 1849 by FELTON ARTEAGA RN Amended: Links added.
--- NOTE | 2018-07-16 18:48 | NUR ---
back to atrial fib hr 110 -120/min. son at the bedside. patient had some lpureed foods and milk Addendum: 07/16/18 at 1849 by FELTON ARTEAGA RN Amended: Links added.
--- NOTE | 2018-07-16 20:00 | NUR ---
Resting comfortably in bed. Lethargic, arousable. Left side strong, tends to grab RN with left hand. Hx CVA with right sided body weakness. Pt being digitalized and closely monitored. Monitor rapid AFib to Sinus tachy. BP stable. Resp easy with excellent sats on NC 2L/min. Periods of coughing; RT NT suctioned pt to moderate thick secretions. Aspiration precautions and nursing comfort measures observed at all times. Please see CCU flowsheet for full assessment and clinical data.
[2018-07-16] MEDS: CEFTRIAXONE 1 G in IV DEXTROSE 5% 50 ML IV SCH (21:45)
[2018-07-16] MEDS: Z GUARD REMEDY PASTE 57 GM TUBE TOP PRN (21:45)
[2018-07-16] MEDS: MIRTAZAPINE 15 MG TABLET PO SCH (21:48)
[2018-07-16] MEDS ORDERED: VANCOMYCIN IV 1 G in PREMIXED 0 EACH IV SCH (23:00)
[2018-07-17 01:00] VITALS: BP 148/65
--- NOTE | 2018-07-17 01:00 | NUR ---
After bath, noted monitor back to AFib with RVR. Stable BP. Periods of wailing/crying; pt reassured. States is thirsty and pt grabbed glass of milk from RN's hands. Took fluids well with no evidence of aspiration however aspiration precautions observed at all times. Continues to sleep.
[2018-07-17 02:00] VITALS: BP 123/71
[2018-07-17] MEDS: IV NORMAL SALINE 250 ML IV PRN (02:18)
[2018-07-17] MEDS: MINERAL OIL/PETROLATUM,WHITE 57 GM TUBE TOP PRN (02:19)
--- NOTE | 2018-07-17 02:41 | NUR ---
Monitor alarming, noted R-on-T, VFib; found pt unresponsive. Code Blue called--Please see Code Blue Record.
--- NOTE | 2018-07-17 02:43 | NUR ---
Responded to Code Blue, compressions and BMV ventilation with 100% FiO2 initiated. ACLS performed. Patient pronounced by Dr. Ochoa.
[2018-07-17] MEDS ORDERED: EPINEPHRINE 1:10,000 1 MG/10 ML DISP.SYRIN MC ONE (03:03)
--- NOTE | 2018-07-17 03:04 | NUR ---
Pt pronounced by ER MD Dr. Ochoa. Son Sridhar notified of incident, he states will come in.
--- NOTE | 2018-07-17 03:20 | NUR ---
Spoke with Dr. Melendez (collision estimator) and notified of pt's expiration. Post-mortem care rendered.
--- NOTE | 2018-07-17 03:30 | NUR ---
[facility] [employer] notified. Pt not a candidate for tissue/organ donor; case # [id number].
--- NOTE | 2018-07-17 04:15 | NUR ---
Son Sridhar here for viewing; pt belongings taken home. Will call Nursing Office later today for mortuary information.
--- NOTE | 2018-07-17 06:00 | NUR ---
Remains brought to Morgue by RN Timber Appraiser, [employer] Salesperson and RN/LEAD PHARMACY TECHNICIAN staff members.
[2018-07-17] MEDS ORDERED: DIGOXIN 125 MCG TABLET PO SCH (09:00)
[2018-07-17] MEDS ORDERED: FUROSEMIDE 20 MG/2 ML VIAL IVP SCH (09:00)
[2018-07-17] MEDS ORDERED: FUROSEMIDE 40 MG/4 ML VIAL IV SCH (09:00)
== END 2018-07-17 03:04 | disposition expired | DRG 871 ==
LOC: ER 10:15 → CCU 12:49 → TELE-TD 07-15 09:59 → CCU 07-15 10:00
PROVIDERS: ADMIT Internal Medicine; ATTEND Internal Medicine
PROC: 02HV33Z Insertion of Infusion Device into Superior Vena Cava, Percutaneous Approach (ICD-10-PCS; principal; 2018-07-13)
PROC: 5A12012 Performance of Cardiac Output, Single, Manual (ICD-10-PCS; 2018-07-17)
DX: A41.9 Sepsis, unspecified organism (principal); R65.21 Severe sepsis with septic shock; G92 Toxic encephalopathy; I21.A1 Myocardial infarction type 2; J96.01 Acute respiratory failure with hypoxia; I50.21 Acute systolic (congestive) heart failure; I69.351 Hemiplegia and hemiparesis following cerebral infarction affecting right dominant side; I51.81 Takotsubo syndrome; N39.0 Urinary tract infection, site not specified; F32.2 Major depressive disorder, single episode, severe without psychotic features; N17.9 Acute kidney failure, unspecified; J98.11 Atelectasis; I48.0 Paroxysmal atrial fibrillation; I11.0 Hypertensive heart disease with heart failure; I69.320 Aphasia following cerebral infarction; K11.21 Acute sialoadenitis; J45.909 Unspecified asthma, uncomplicated; I48.2 Chronic atrial fibrillation; E78.5 Hyperlipidemia, unspecified; M34.9 Systemic sclerosis, unspecified; E03.9 Hypothyroidism, unspecified; R57.0 Cardiogenic shock; Z79.890 Hormone replacement therapy; Z87.440 Personal history of urinary (tract) infections; B96.20 Unspecified Escherichia coli [E. coli] as the cause of diseases classified elsewhere; R13.10 Dysphagia, unspecified; I25.10 Atherosclerotic heart disease of native coronary artery without angina pectoris; M19.90 Unspecified osteoarthritis, unspecified site; R79.1 Abnormal coagulation profile; F41.9 Anxiety disorder, unspecified; D64.9 Anemia, unspecified; E87.6 Hypokalemia; I25.2 Old myocardial infarction; E86.0 Dehydration; D69.6 Thrombocytopenia, unspecified; Z88.5 Allergy status to narcotic agent; Z91.010 Allergy to peanuts; Z88.0 Allergy status to penicillin
CPT/HCPCS: 36415; 36600; 70030-TC; 70491; 71045; 76604; 83550; 83735; 84100; 84443; 84450; 84460; 85025; 85730; 87077; 87086; 93005; 93307; 94664; A4663; G0378; J0171; J0282; J0696; J1160; J1170; J1940; J2060; J2185; J2370; J2405; J3370; J3480; J3490; J7030; J7040; J7050; J7060; Q9967